=== PATIENT | female | born 1930 | race Caucasian/White ===

== ENCOUNTER 2016-08-06 07:41 | Day surgery (SDC) | payer MEDICARE, BC ==
[~2016-08-06 07:41] MED LIST: ACETAMINOPHEN 500 MG TABLET PO PRN; HYDROmorphone HCL 2 MG/ML VIAL IV PRN; MAG HYDROX/ALUMINUM HYD/SIMETH 30 ML UDC PO PRN; MAGNESIUM HYDROXIDE 30 ML UDC PO PRN; ONDANSETRON HCL/PF 2 MG/ML VIAL IV PRN; PROMETHAZINE HCL 25 MG in DEXTROSE 5 % IN WATER 50 ML IV PRN; RINGERS SOLUTION,LACTATED 1,000 ML IV PRN; ZOLPIDEM TARTRATE 5 MG TABLET PO PRN; ceFAZolin SODIUM 1 GM VIAL IV PRN; diphenhydrAMINE HCL 50 MG/ML VIAL IV PRN; oxyCODONE HCL/ACETAMINOPHEN 1 TAB TABLET PO PRN
--- OUTSIDE RECORDS SUMMARY | 2016-08-06 07:45 | XMS REPORT | Continuity of Care Document ---
:1930 Author Organization [facility] ([facility]) Address [address] [place] [address] Phone [phone] Care Team Providers Name Role Phone John Gonzales Primary Care Provider [phone] Source Comments This disclosure is being made pursuant to the Care Everywhere program, applicable federal and state laws, and may not contain all informaitonavailable regarding this patient.[facility] ([facility]) Active Allergies and Adverse Reactions No Known Allergies Current Medications Prescription Sig. Disp. Refills Start Date End Date Status simvastatin 40 mg tablet Take 40 mg by mouth Active every evening. aspirin 325 mg tablet Take 325 mg by Active mouth daily. diltiazem 30 mg tablet Take 30 mg by mouth Active 2 times daily. 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 Successful deployment of 3.0x18mm Cholo stent.) - 07/29/2000 Hypertension Hyperlipidemia Paroxysmal atrial fibrillation S/P coronary artery stent placement Myocardial infarction, old Social History Tobacco Use Types Packs/Day Years Used Date Never Smoker Smokeless Tobacco: Never Used Alcohol Use Drinks/Week oz/Week Comments No Last Filed Vital Signs Vital Sign Reading Time Taken Blood Pressure 100/62 02/12/2016 10:15 AM CDT Pulse 72 02/12/2016 10:15 AM CDT Temperature 37.3 C (99.1 F) 02/15/2013 1:58 PM CDT Respiratory Rate 16 04/07/2015 2:45 PM ON SITE NURSE Height 1.524 m (5') 02/12/2016 10:15 AM CDT Weight 47.174 kg (104 lb) 02/12/2016 10:15 AM CDT Body Mass Index 20.31 02/12/2016 10:15 AM CDT Oxygen Saturation 96% 04/07/2015 3:40 PM ON SITE NURSE Plan of Care Date Type Specialty Providers Description 02/15/2017 Appointment Heart and Vascular Zoey Echeverria MD Chief Comp: Patient [address] [place] [address] Visit [phone] (Fax) Health Maintenance Due Date Last Done Comments Hepatitis B Vaccine (1 of 3 - Primary Series) 1930 Tdap Vaccine 1940 Lipid Disorder Screening 1947 Td Vaccine 1948 Zoster Vaccine 1989 Pneumococcal Vaccine (1 of 2 - PCV13) 1994 Influenza Vaccine: Seasonal (#1) 12/01/2015 Results from Last 3 Months Not on file
[2016-08-06] MEDS ORDERED: RINGERS SOLUTION,LACTATED 1,000 ML IV ONE ×2 (08:19→11:40)
[2016-08-06 16:07] VITALS: BP 130/70
[2016-08-06] MEDS ORDERED: SENNOSIDES/DOCUSATE SODIUM 1 TAB TABLET PO SCH (21:00)
== END 2016-08-06 07:42 | disposition home or self-care (01) ==
LOC: AMB 07:41
PROVIDERS: ATTEND Orthopaedic Surgery
PROC: 0JNJ0ZZ Release Right Hand Subcutaneous Tissue and Fascia, Open Approach (ICD-10-PCS; principal; 2016-08-06 09:05)
DX: M72.0 Palmar fascial fibromatosis [Dupuytren] (principal); I10 Essential (primary) hypertension; I48.91 Unspecified atrial fibrillation; I25.10 Atherosclerotic heart disease of native coronary artery without angina pectoris; E78.5 Hyperlipidemia, unspecified; Z68.1 Body mass index [BMI] 19.9 or less, adult

== ENCOUNTER 2016-10-12 09:58 | Emergency (ER) | payer MEDICARE, BC ==
--- NOTE | 2016-10-12 10:38 | ERNOTE ---
Medical Problem HPI - Narrative Date of Service: 10/12/16 - General Chief Complaint: General Assessment Time Seen by Provider: 10/12/16 10:14 Source: patient, RN notes reviewed, old records Exam Limitations: no limitations - Immun/Allergies/Home Medications Immunizations: IMMUNIZATION HX Immunizations Up to Date Yes Allergies/Adverse Reactions: Allergies morphine Adverse Reaction (Mild, Verified 10/12/16 10:09) sick to stomach Home Medications: HOME MEDICATIONS Aspirin [Aspirin Enteric Coated] 325 mg PO DAILY 05/21/13 [Last Taken 08/01/16] Diltiazem HCl [Cardizem] 30 mg PO BID 05/21/13 [Last Taken 08/06/16 07:00] Simvastatin 40 mg PO HS 05/22/13 [Last Taken Unknown] Melatonin/Pyridoxine HCl (B6) [Melatonin 10 mg Tablet] 1 each PO HS 10/12/16 [ Last Taken Unknown] Rivaroxaban [Xarelto] 20 mg PO BID #41 tab 10/12/16 [Last Taken Unknown] Vit A/C/E AC/Znox/Cupric Oxide [Eyeprotect Tablet] 2 tab PO DAILY 10/12/16 [ Last Taken Unknown] - History of Present History Narrative: Komal is a 86 year old female brought to the ED from Dr. Gonzales's office. She was being seen for a routine visit this morning for difficulty sleeping when she suddenly reported not feeling right and having difficulty breathing. Her heart rate was 76 on arrival with a SpO2 of 96%, but when she started feeling poorly her heart rate was noted to be 250 and her oxygen saturation had dropped to 88%. She currently reports that she does not feel right and that something is wrong. On arrival, her EKG shows a sinus rhythm in the 90's with frequent PAC's and a right BBB. She is shaking and very anxious. She reports having episodes like this for several days. She reports that the heat is making it difficult for her to breathe. She feels like her symptoms improve when she drinks more water. She does have a history of intermittent atrial fib. She takes aspirin daily but is not anticoagulated. Review of Systems - Review of Systems Constitutional: Present: chills, fatigue, malaise. Absent: recent illness EYE: Present: no symptoms reported ENT: Present: no symptoms reported Respiratory: Present: shortness of breath. Absent: cough, wheezing Cardiology: Absent: chest pain, syncope, edema Gastrointestinal/Abdominal: Absent: nausea, vomiting, diarrhea, abdominal pain Genitourinary: Present: no symptoms reported Musculoskeletal: Absent: muscle pain, neck pain Skin: Absent: rash, lesions Neurological: Present: tremors. Absent: headache, dizziness/light-headedness Endocrine: Present: intolerance to heat, increased thirst. Absent: unexplained weight gain, unexplained weight loss Hematologic/Lymphatic: Present: no symptoms reported Psych: Present: anxiety - Patient's Past Medical History Patient History - Medical: No pertinent hx Patient History - Cardiac/Respiratory: Atrial Fibrillation, Coronary Heart Disease, CHF, Hypertension, Hyperlipidemia, Other - Varicose veins Patient History - Cancer: No Hx of Cancer Patient History - Surgical Procedures: , T & A, Orthopedic Patient History - Other: None LMP (females 10-50): Menopausal - Family History Sister Family History - Medical: Other Family History - Cardiac/Respiratory: No pertinent hx Family History - Cancer: No pertinent family hx - Social History Living Situations: home Abuse History: No History of abuse Psych History: No pertinent hx Smoking Status: Never smoker Alcohol Use: none Drug Use: none - Immunizations Immunizations Up to Date: Yes Hx Pneumococcal Vaccination: More Information Required to Determine History of Influenza Vaccine: More Information Required to Determine Physical Exam - Physical Exam General Appearance: Present: alert, mild distress, anxious, thin Neck: Present: normal inspection, nontender, supple Respiratory: Present: no respiratory distress, normal breath sounds, no accessory muscle use, lungs clear Cardiovascular/Chest: Present: no murmur, normal peripheral pulses, irregularly irregular Peripheral Pulses: N=norm/S=strong/W=weak/B=bound/A=absent: Dorsalis-pedis (R): Strong, Dorsalis-pedis (L): Strong Gastrointestinal/Abdominal: Present: nontender, nondistended, soft Back Exam: Present: normal inspection Extremity Exam: Present: normal inspection, no edema Neurological Exam: Present: alert, oriented, no motor/sensory deficits, other - shaking, very anxious. Absent: normal mood/affect Skin Exam: Present: normal color, warm/dry ED Progress - Results and Orders Patient's Lab Results:: I have reviewed the patient's lab results. - Vital Signs Patient's Vital Signs:: I have reviewed the patient's vital signs. Vital Signs: Vital Signs 10/12/16 10:04 Temperature 37.5 C Pulse Rate 94 Respiratory 18 Rate Blood Pressure 177/87 O2 Sat by Pulse 94 Oximetry - EKG EKG: NSR, RBBB, other - freq PAC's EKG read: Reviewed by me - X-Ray X-Ray #1 X-Ray: chest Interpretation: Reviewed by me X-ray Comments: Chest Single View *: Hyperinflated lungs. No definite consolidation. Increased probably vascular markings and peripheral interstitial lung markings are present. No pneumothorax or pleural fluid collections apparent. Moderate cardiomegaly suggested. Vascular calcifications are seen projecting over the aorta. Trachea is in normal position given patient positioning. Decreased mineralization of bone suggestive of underlying osteopenia or osteoporosis. 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 IMPRESSION: 1. Probably vascular congestion and interstitial edema suggested. 2. Stable cardiomegaly. 3. No focal consolidation. 4. Additional comments as above. Electronically signed by Anju Kennedy M.D.. - CT/Ultrasound CT/Ultrasound Narrative: CTA Chest: IMPRESSION: 1. Positive for small acute versus chronic pulmonary thromboembolism in the right lower lobe posterior basal segment. 2. Interlobular septal thickening at the lung bases, pulmonary vascular congestion suggested. Correlate clinically for pulmonary edema. 3. Trace bilateral pleural effusions. 4. Cardiomegaly with cardiac chamber enlargement, especially the atria. Ordering provider Lexus Badillo was informed regarding the above results via telephone on 2016 12:52 PM. Electronically signed by Anju Kennedy M.D.. - Progress/Reassessment Chief Complaint: General Assessment Progress:: Improved Plan - Plan Plan: CT results showing PE discussed with patient. She is agreeable to starting an anticoagulant. Her heart rate has been in the 70's to 90's with frequent PAC's while in the department. She is feeling better and much more calm. Care also discussed with her PCP , Dr. Gonzales who will see her in the office for follow up. The patient will contact his office to schedule an appointment. Departure - Departure Clinical Impression: Pulmonary embolism on right Disposition: Home Follow Up Needed Condition: Stable Instructions: Pulmonary Embolism Additional Instructions: Call Dr. Gonzales's office to set up a follow up appointment Return to ER if symptoms worsen Referrals: John Gonzales MD [Staff Physician] - Prescriptions: Rivaroxaban [Xarelto] 20 mg PO BID #41 tab
[2016-10-12 10:49] LABS: Hematocrit 43.2 % (37.0-47.0); Hemoglobin 14.2 gm/dL (12.5-16.0); Mean Cell Volume 86.7 fl (78-100); Mean Corpuscular Hemoglobin 28.5 pg (27-31); Mean Corpuscular Hgb Conc 32.9 g/dl (32-36); Mean Platelet Volume 9.7 fl (6.0-9.5); Neutrophil # 3.6 K/mm3 (1.3-6.0); Neutrophil % 66.6 % (42-75.0); Platelet Count 144 K/mm3 (150-450); Red Blood Count 4.98 M/mm3 (4.2-5.4); Red Cell Distribution Width 14.4 % (11.5-14.0); White Blood Count 5.4 K/mm3 (4.0-10.5)
--- OUTSIDE RECORDS SUMMARY | 2016-10-12 10:49 | XMS REPORT | Continuity of Care Document ---
:1930 Author Organization [facility] ([facility]) Address [address] [place] [address] Phone [phone] Care Team Providers Name Role Phone John Gonzales Primary Care Provider [phone] Source Comments This disclosure is being made pursuant to the Care Everywhere program, applicable federal and state laws, and may not contain all informaitonavailable regarding this patient.[facility] ([facility]) Active Allergies and Adverse Reactions No [...] be different from the original. 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 Height 1.524 m (5') 02/12/2016 10:15 AM CDT Weight 47.174 kg (104 lb) 02/12/2016 10:15 AM CDT Body Mass Index 20.31 02/12/2016 10:15 AM CDT Oxygen Saturation 96% 04/07/2015 3:40 PM CREDIT UNDERWRITER Plan of Care Date Type Specialty Providers Description 02/15/2017 Appointment Heart and Vascular Zoey Echeverria MD Chief Comp: Patient [address] [place] [address] Visit [phone] (Fax) Health Maintenance Due Date Last Done Comments Hepatitis B Vaccine (1 of 3 - Primary Series) 1930 Tdap Vaccine 1940 Lipid Disorder Screening 1947 Td Vaccine 1947 Zoster Vaccine 1989 Pneumococcal Vaccine (1 of 2 - PCV13) 1994 Influenza Vaccine: Seasonal (#1) 12/01/2015 Results from Last 3 Months Not on file
[2016-10-12 11:02] LABS: Troponin I 0.02 ng/ml (0.00-0.10)
[2016-10-12 11:04] LABS: Albumin * 3.8 gm/dl (3.4-5.0); Anion Gap 12.7 mmol/L (6.8-13.8); BUN/Creatinine Ratio 26.7 (9.0-21.6); Bilirubin, Total 0.6 mg/dL (0.0-1.1); Ca. Corrected For Albumin 8.9 mg/dL (8.4-10.2); Calcium * 9.1 mg/dL (7.9-10.9); Carbon Dioxide 29.5 mmol/L (24-32.6); Potassium 5.2 mmol/L (3.4-4.6); Total Protein 6.9 gm/dL (6.2-8.2)
[2016-10-12 11:16] LABS: Urine Bilirubin Negative (NEGATIVE); Urine Blood Negative /ul (NEGATIVE); Urine Ketone Negative (NEGATIVE); Urine Nitrite Negative (NEGATIVE); Urine Protein Negative (NEGATIVE); Urine Specific Gravity 1.015 SP.GR. (1.005-1.010); Urine Urobilinogen Normal (NORMAL); Urine pH 6.5 pH (5.0-7.0)
[2016-10-12 11:24] LABS: Urine Appearance Clear; Urine Color Yellow; Urine RBC TRACE /hpf (0-5); Urine WBC None Seen /hpf (0-5)
[2016-10-12 11:25] LABS: Urine Bacteria None Seen; Urine Hyaline Cast TRACE /LPF; Urine Mucus TRACE
[2016-10-12] MEDS ORDERED: RIVAROXABAN 20 MG TABLET PO PRN (13:17)
[2016-10-12 13:22] VITALS: BP 157/73
== END 2016-10-12 13:40 | disposition home or self-care (01) ==
LOC: ER 09:58
DX: I26.99 Other pulmonary embolism without acute cor pulmonale (principal); I48.91 Unspecified atrial fibrillation; Z79.01 Long term (current) use of anticoagulants; I10 Essential (primary) hypertension; E78.5 Hyperlipidemia, unspecified

== ENCOUNTER 2016-12-08 00:52 | Emergency (ER) | payer MEDICARE, BC ==
--- NOTE | 2016-12-08 01:20 | ERNOTE ---
Back Pain ER HPI Presenting Symptoms: injury/pain to back Time Seen by Provider: 12/08/16 01:09 Source: patient Exam Limitations: hard of hearing Immunizations: IMMUNIZATION HX Immunizations Up to Date Yes History of Influenza Vaccine Yes Hx Pneumococcal Vaccination No Allergies/Adverse Reactions: Allergies morphine Adverse Reaction (Mild, Verified 12/08/16 01:20) sick to stomach Home Medications: HOME MEDICATIONS Diltiazem HCl [Cardizem] 30 mg PO BID 05/21/13 [Last Taken 08/06/16 07:00] Simvastatin 40 mg PO HS 05/22/13 [Last Taken Unknown] Melatonin/Pyridoxine HCl (B6) [Melatonin 10 mg Tablet] 1 each PO HS 10/12/16 [ Last Taken Unknown] Alprazolam [Xanax] 0.25 mg PO HS 12/08/16 [Last Taken Unknown] Apixaban [Eliquis] 5 mg PO BID 12/08/16 [Last Taken Unknown] Cholecalciferol (Vitamin D3) [Vitamin D3] 1,000 unit PO DAILY 12/08/16 [Last Taken Unknown] Vit A/C/E AC/Znox/Cupric Oxide [Eye Vitamin-Minerals Tablet] 2 each PO DAILY 01/16 [Last Taken Unknown] traMADol HCL [Ultram] 50 - 100 mg PO QID PRN #10 tab 12/08/16 [Last Taken Unknown] Narrative: Pt got up to go to the bathroom and fell between the wall and her dresser. She landed on her buttocks. She complains of left rib pain and mid to low back pain. Timing: Reports: constant Quality/Severity: Reports: moderate Location of pain: Reports: mid back, lower back Recent Injury?: Reports: yes Possible Precipitating Factor: Reports: fall/near fall Modifying Factors - (Worsens): Reports: cough/deep breaths Review of Systems - Review of Systems Constitutional: Absent: recent illness EYE: Absent: vision changes Respiratory: Absent: shortness of breath Cardiology: Present: no symptoms reported Musculoskeletal: Present: See HPI. Absent: neck pain Skin: Present: other - abrasions left arm Neurological: Absent: dizziness/light-headedness Endocrine: Present: no symptoms reported Hematologic/Lymphatic: Present: easy bruising Psych: Present: no symptoms reported - Patient's Past Medical History Patient History - Medical: No pertinent hx Patient History - Cardiac/Respiratory: Atrial Fibrillation, Coronary Heart Disease, CHF, Hypertension, Hyperlipidemia, Other Patient History - Cancer: No Hx of Cancer Patient History - Surgical Procedures: , T & A, Orthopedic Patient History - Other: None - Family History Sister Family History - Medical: Other Family History - Cardiac/Respiratory: No pertinent hx Family History - Cancer: No pertinent family hx - Social History Living Situations: alone Abuse History: No History of abuse Psych History: No pertinent hx Smoking Status: Never smoker Have you smoked in the past 12 months: No Do you dip or chew tobacco: No Alcohol Use: none Drug Use: none - Immunizations Immunizations Up to Date: Yes Hx Pneumococcal Vaccination: No History of Influenza Vaccine: Yes Physical Exam - Physical Exam General Appearance: Present: wd/wn, alert, mild distress Head Exam: Present: normal inspection, no evidence of injury Neck: Present: normal inspection, nontender, supple Respiratory: Present: no respiratory distress Back Exam: Present: vertebral tenderness - T8-L3 Extremity Exam: Present: normal inspection, non-tender, normal range of motion, pelvis stable Neurological Exam: Present: alert, oriented, normal mood/affect, no motor/ sensory deficits Skin Exam: Present: other - abrasions left elbow ED Progress - Results and Orders Patient's Lab Results:: I have reviewed the patient's lab results. Results and Orders: Laboratory Tests 12/08/16 12/08/16 01:16 01:16 WBC 5.9 Hgb 13.8 Hct 40.9 Plt Count 159 Lymphocytes % 19.5 L Sodium 137 Potassium 4.8 H Chloride 100 Carbon Dioxide 29.7 BUN 12 Creatinine 0.54 Random Glucose 109 Calcium 8.8 Total Bilirubin 0.6 AST 33 ALT 38 Alkaline Phosphatase 71 Total Protein 6.4 Albumin 3.5 - Vital Signs Patient's Vital Signs:: I have reviewed the patient's vital signs. Vital Signs: Vital Signs 12/08/16 01:00 Temperature 36.6 C Pulse Rate 94 Respiratory 12 Rate O2 Sat by Pulse 94 Oximetry - X-Ray X-Ray #1 X-Ray: chest Interpretation: Interp. by me X-ray Comments: no acute changes, no infiltrate or effusion X-Ray #2 X-Ray: ribs Interpretation: Interp. by me X-ray Comments: No fracture appreciated X-Ray #3 X-Ray: lumbosacral Interpretation: Interp. by me X-ray Comments: possible mild anterior T12 compression fracture- probably old - Progress/Reassessment Chief Complaint: Back Pain Progress:: Improved Departure Clinical Impression: Contusion of back Qualifiers: Encounter type: initial encounter Laterality: unspecified laterality Qualified Code(s): S20.229A - Contusion of unspecified back wall of thorax, initial encounter Contusion of rib on left side Qualifiers: Encounter type: initial encounter Qualified Code(s): S20.212A - Contusion of left front wall of thorax, initial encounter - Departure Disposition: Home Follow Up Needed Condition: Good Instructions: Contusion, [id number] Additional Instructions: use pain meds as needed. See your regular doctor if not improving Referrals: John Gonzales MD [Primary Care Provider] - Prescriptions: traMADol HCL [Ultram] 50 - 100 mg PO QID PRN #10 tab PRN Reason: Pain
[2016-12-08 01:37] LABS: Hematocrit 40.9 % (37.0-47.0); Hemoglobin 13.8 gm/dL (12.5-16.0); Mean Cell Volume 86.3 fl (78-100); Mean Corpuscular Hemoglobin 29.1 pg (27-31); Mean Corpuscular Hgb Conc 33.7 g/dl (32-36); Mean Platelet Volume 10.4 fl (6.0-9.5); Neutrophil # 3.8 K/mm3 (1.3-6.0); Neutrophil % 64.6 % (42-75.0); Platelet Count 159 K/mm3 (150-450); Red Blood Count 4.74 M/mm3 (4.2-5.4); Red Cell Distribution Width 14.4 % (11.5-14.0); White Blood Count 5.9 K/mm3 (4.0-10.5)
[2016-12-08 01:53] LABS: Albumin * 3.5 gm/dl (3.4-5.0); Anion Gap 12.1 mmol/L (6.8-13.8); BUN/Creatinine Ratio 22.2 (9.0-21.6); Bilirubin, Total 0.6 mg/dL (0.0-1.1); Ca. Corrected For Albumin 8.9 mg/dL (8.4-10.2); Calcium * 8.8 mg/dL (7.9-10.9); Carbon Dioxide 29.7 mmol/L (24-32.6); Potassium 4.8 mmol/L (3.4-4.6); Total Protein 6.4 gm/dL (6.2-8.2)
[2016-12-08] MEDS ORDERED: NALBUPHINE HCL 20 MG/ML AMPUL IV ONE (02:16)
[2016-12-08] MEDS ORDERED: ONDANSETRON HCL/PF 2 MG/ML VIAL IV ONE (02:16)
[2016-12-08] MEDS ORDERED: NALBUPHINE HCL 20 MG/ML AMPUL ONE (02:17)
[2016-12-08] MEDS ORDERED: ONDANSETRON HCL/PF 2 MG/ML VIAL ONE (02:17)
[2016-12-08] MEDS ORDERED: traMADol HCL 50 MG TABLET PO ONE (03:31)
[2016-12-08] MEDS ORDERED: traMADol HCL 50 MG TABLET ONE (03:36)
[2016-12-08 04:07] VITALS: BP 92/52
== END 2016-12-08 04:07 | disposition home or self-care (01) ==
LOC: ER 00:52
DX: S20.229A Contusion of unspecified back wall of thorax, initial encounter (principal); S20.212A Contusion of left front wall of thorax, initial encounter; I48.91 Unspecified atrial fibrillation; Z79.01 Long term (current) use of anticoagulants; I50.9 Heart failure, unspecified; I10 Essential (primary) hypertension; E78.5 Hyperlipidemia, unspecified; W18.39XA Other fall on same level, initial encounter; Z91.81 History of falling; Y93.89 Activity, other specified; Y92.9 Unspecified place or not applicable
CPT/HCPCS: 36415; 71020; 71100; 72110; 80053; 85025; 96374; 96375; 99284; J2405

== ENCOUNTER 2016-12-13 11:23 | Observation (INO) | payer MEDICARE, BC ==
[2016-12-13] MEDS ORDERED: HYDROcodone/ACETAMINOPHEN 1 EACH TABLET PO ONE (11:48)
[2016-12-13] MEDS ORDERED: HYDROcodone/ACETAMINOPHEN 1 EACH TABLET ONE (11:51)
--- NOTE | 2016-12-13 12:47 | ERNOTE ---
Back Pain ER HPI Presenting Symptoms: injury/pain to back Time Seen by Provider: 12/13/16 11:38 Source: patient, family Exam Limitations: no limitations Immunizations: IMMUNIZATION HX Immunizations Up to Date Yes History of Influenza Vaccine Yes Hx Pneumococcal Vaccination Yes Allergies/Adverse Reactions: Allergies morphine Adverse Reaction (Mild, Verified 12/13/16 11:37) sick to stomach Home Medications: HOME MEDICATIONS Diltiazem HCl [Cardizem] 30 mg PO BID 05/21/13 [Last Taken 08/06/16 07:00] Simvastatin 40 mg PO HS 05/22/13 [Last Taken Unknown] Melatonin/Pyridoxine HCl (B6) [Melatonin 10 mg Tablet] 1 each PO HS 10/12/16 [ Last Taken Unknown] Alprazolam [Xanax] 0.25 mg PO HS 12/08/16 [Last Taken Unknown] Apixaban [Eliquis] 5 mg PO BID 12/08/16 [Last Taken Unknown] Cholecalciferol (Vitamin D3) [Vitamin D3] 1,000 unit PO DAILY 12/08/16 [Last Taken Unknown] Vit A/C/E AC/Znox/Cupric Oxide [Eye Vitamin-Minerals Tablet] 2 each PO DAILY 01/16 [Last Taken Unknown] traMADol HCL [Ultram] 50 - 100 mg PO QID PRN #10 tab 12/08/16 [Last Taken Unknown] Narrative: Patient presents with another fall and worsening upper lumbar lower thoracic pain. Patient states that she's having extraordinary difficulty getting up and moving around and because of the pain in the lumbar thoracolumbar junction she is not able to carry on her normal ADLs. She rates the pain as severe and is now weak and unsteady even with the use of her walker. Timing: Reports: constant, getting worse Quality/Severity: Reports: severe Location of pain: Reports: lower back Activities at Onset: Reports: other - fall Recent Injury?: Reports: yes Possible Precipitating Factor: Reports: fall/near fall Modifying Factors - (Improves): Reports: nothing Modifying Factors - (Worsens): Reports: upright position, movement to right, movement to left, movement flexion Associated Symptoms: Reports: fever/chills Prior Treament: Reports: recently seen Review of Systems - Review of Systems Constitutional: Present: See HPI EYE: Present: no symptoms reported ENT: Present: no symptoms reported Respiratory: Present: no symptoms reported Cardiology: Present: no symptoms reported Gastrointestinal/Abdominal: Present: no symptoms reported Genitourinary: Present: no symptoms reported Musculoskeletal: Present: See HPI, back pain Skin: Present: no symptoms reported Neurological: Present: no symptoms reported Endocrine: Present: no symptoms reported Hematologic/Lymphatic: Present: no symptoms reported Psych: Present: no symptoms reported - Patient's Past Medical History Patient History - Medical: No pertinent hx Patient History - Cardiac/Respiratory: Atrial Fibrillation, Coronary Heart Disease, CHF, Hypertension, Hyperlipidemia, Other Patient History - Cancer: No Hx of Cancer Patient History - Surgical Procedures: , T & A, Orthopedic Patient History - Other: None LMP (females 10-50): post menopausal - Family History Sister Family History - Medical: Other Family History - Cardiac/Respiratory: No pertinent hx Family History - Cancer: No pertinent family hx - Social History Living Situations: home Abuse History: No History of abuse Psych History: No pertinent hx Smoking Status: Never smoker Alcohol Use: none Drug Use: none - Immunizations Immunizations Up to Date: Yes Hx Pneumococcal Vaccination: Yes History of Influenza Vaccine: Yes Physical Exam - Physical Exam General Appearance: Present: wd/wn, alert, severe distress Head Exam: Present: normal inspection, no evidence of injury Eye Exam: Normal inspection: bilateral, PERRL: bilateral Ears, Nose, Throat: Present: normal ENT inspection, H, normal pharynx Neck: Present: normal inspection, nontender Respiratory: Present: no respiratory distress, normal breath sounds, no accessory muscle use, chest nontender, lungs clear Cardiovascular/Chest: Present: regular rate, rhythm, no murmur, normal peripheral pulses Gastrointestinal/Abdominal: Present: normal bowel sounds, nontender, nondistended, soft, no organomegaly Rectal Exam: Present: deferred Back Exam: Present: no vertebral tenderness, decreased range of motion, muscle spasm Extremity Exam: Present: normal inspection, non-tender, no edema, normal range of motion Neurological Exam: Present: alert, oriented, normal mood/affect Skin Exam: Present: normal color, warm/dry Lymphatic Exam: Present: no adenopathy ED Progress - Results and Orders Patient's Lab Results:: I have reviewed the patient's lab results. - Vital Signs Patient's Vital Signs:: I have reviewed the patient's vital signs. Vital Signs: Vital Signs 12/13/16 11:25 Temperature 37.0 C Pulse Rate 88 Respiratory 15 Rate Blood Pressure 155/110 - X-Ray X-Ray #1 X-Ray: lumbosacral Interpretation: Reviewed by me - Progress/Reassessment Chief Complaint: Back Pain Progress:: Unchanged Plan - Plan Plan: Patient has no relief from oral pain management to be attempted. Patient has fallen several times now and has a worsening compression fracture T12 and is unstable on her feet and will likely not be able to go home at this point. Patient will be admitted for pain management, PT/OT eval and then consideration for other home physical therapy or possible a brief period of time in the [facility] for continuing PT/OT. Departure Clinical Impression: Compression fracture of body of thoracic vertebra, Intractable back pain, Falls frequently - Departure Disposition: [facility] Condition: Fair Referrals: John Gonzales MD [Primary Care Provider] -
[2016-12-13 13:44] LABS: Urine Bilirubin Negative (NEGATIVE); Urine Blood 25 /ul (NEGATIVE); Urine Ketone 15 mg/dL (NEGATIVE); Urine Nitrite Negative (NEGATIVE); Urine Protein 100 mg/dL (NEGATIVE); Urine Specific Gravity 1.025 SP.GR. (1.005-1.010); Urine Urobilinogen Normal (NORMAL)
[2016-12-13 13:52] LABS: Urine Appearance Clear; Urine Color Yellow; Urine WBC TRACE /hpf (0-5)
[2016-12-13 13:53] LABS: Urine Bacteria 1+; Urine RBC None Seen /hpf (0-5)
[2016-12-13] MEDS: HYDROmorphone HCL 1 MG/ML DISP.SYRIN IV PRN ×2 (14:25→17:09)
[2016-12-13 14:29] LABS: Hematocrit 43.9 % (37.0-47.0); Hemoglobin 14.9 gm/dL (12.5-16.0); Mean Cell Volume 84.4 fl (78-100); Mean Corpuscular Hemoglobin 28.7 pg (27-31); Mean Corpuscular Hgb Conc 33.9 g/dl (32-36); Mean Platelet Volume 10.2 fl (6.0-9.5); Neutrophil # 8.3 K/mm3 (1.3-6.0); Neutrophil % 84.8 % (42-75.0); Platelet Count 123 K/mm3 (150-450); Red Cell Distribution Width 14.1 % (11.5-14.0); White Blood Count 9.8 K/mm3 (4.0-10.5)
[2016-12-13 14:43] LABS: Albumin * 3.5 gm/dl (3.4-5.0); Anion Gap 13.7 mmol/L (6.8-13.8); BUN/Creatinine Ratio 20.8 (9.0-21.6); Bilirubin, Total 0.8 mg/dL (0.0-1.1); Ca. Corrected For Albumin 9.1 mg/dL (8.4-10.2); Carbon Dioxide 28.3 mmol/L (24-32.6); Total Protein 6.7 gm/dL (6.2-8.2)
--- NOTE | 2016-12-13 17:14 | HP ---
Chief Complaint - Chief Complaint Date of Service: 12/13/16 Time of Service: 17:00 Chief Complaint: intractable LBP History of Present Illness: Komal Puckett is an 86-year-old white female, patient of Dr. Gonzales, with previous medical disc history of atrial fibrillation, carotid artery stenosis, hypertension, congestive heart failure, pulmonary embolism, who was admitted on 12/13/2016 because of intractable low back pain. 5 days prior to admission the patient lost her balance and fell down hitting her drawer and the wall. She was seen in the emergency room and had an x-ray of her lumbar spine. This was read as a compression deformity of her T12 vertebra age indeterminate. One day PTS, the patient again fell down. She was going to the bathroom and she lost her balance, falling down on her buttocks. She had severe pain despite taking tramadol and so she was brought to the emergency room. Follow-up lumbar x-ray showed showed 50% compression fracture of her T12 vertebra. She was then admitted for pain control and physical therapy referral. She denied any CP, palpitations, blanketing of vision, diaphoresis before falling down. - Patient's Past Medical History Patient History - Medical: No pertinent hx Patient History - Cardiac/Respiratory: Atrial Fibrillation, Coronary Heart Disease, CHF, Hypertension, Hyperlipidemia, Other Patient History - Cancer: No Hx of Cancer Patient History - Surgical Procedures: , T & A, Orthopedic Patient History - Other: None LMP (females 10-50): Menopausal - Family History Sister Family History - Medical: Other Family History - Cardiac/Respiratory: No pertinent hx Family History - Cancer: No pertinent family hx Mother Family History - Medical: Father Family History - Medical: Family History - Cardiac/Respiratory: Cardiac Arrest, Coronary Heart Disease - Social History Living Situations: alone Abuse History: No History of abuse Psych History: No pertinent hx Smoking Status: Never smoker Have you smoked in the past 12 months: No Do you dip or chew tobacco: No Alcohol Use: none Drug Use: none - Immunizations Immunizations Up to Date: Yes Hx Pneumococcal Vaccination: Yes History of Influenza Vaccine: Yes Review Of Systems (GEN) - Review of Systems Generalized/Overall Review: Present: Weakness. Absent: Fever EENTM: Present: No Symptoms Reported Respiratory: Absent: Cough, Shortness of Breath Cardiac: Absent: Chest Pain, Edema, Palpitations Abdominal: Absent: Nausea, Vomiting Genitourinary: Absent: Urgency, Frequency Musculoskeletal: Present: Joint Pain, Back Pain Allergies/Adverse Reactions: Allergies Allergy/AdvReac Type Severity Reaction Status Date / Time morphine AdvReac Mild sick to Verified 12/13/16 14:11 stomach Home Medications: HOME MEDICATIONS Diltiazem HCl [Cardizem] 30 mg PO BID 05/21/13 [Last Taken 08/06/16 07:00] Simvastatin 40 mg PO HS 05/22/13 [Last Taken Unknown] Melatonin/Pyridoxine HCl (B6) [Melatonin 10 mg Tablet] 1 each PO HS 10/12/16 [ Last Taken Unknown] Alprazolam [Xanax] 0.25 mg PO HS 12/08/16 [Last Taken Unknown] Apixaban [Eliquis] 5 mg PO BID 12/08/16 [Last Taken Unknown] Cholecalciferol (Vitamin D3) [Vitamin D3] 1,000 unit PO DAILY 12/08/16 [Last Taken Unknown] traMADol HCL [Ultram] 50 - 100 mg PO QID PRN #10 tab 12/08/16 [Last Taken Unknown] Aspirin 81 mg PO DAILY 12/13/16 [Last Taken Unknown] [place]-3 Fatty Acids/Fish Oil [Fish Oil 1,000 mg Capsule] 1 each PO DAILY [Last Taken Unknown] Exam - Exam Vital Signs: Vital Signs - Last Taken Temp 37.1 C 12/13/16 14:50 Pulse 70 12/13/16 14:50 Resp 20 12/13/16 14:50 BP 142/77 12/13/16 14:50 Pulse Ox 96 12/13/16 14:50 Constitutional: Present: Alert, Oriented x3, Cooperative, Elderly, Thin and frail ENT Exam: Present: hearing grossly normal Eye Exam: bilateral eye: normal inspection, PERRL, EOMI Neck: Present: supple Back Exam: Present: vertebral tenderness Breasts: Present: Exam deferred Respiratory: Present: decreased breath sounds, No rales, No wheezing Cardiovascular/Chest: Present: no JVD, no murmur, irregularly irregular Abdomen: Present: Normal bowel sounds, soft, nontender, nondistended Extremity: Present: no calf tenderness, pedal edema Diagnostic Studies: Abnormal Lab Results 12/13/16 12/13/16 Range/Units 14:20 14:20 RDW 14.1 H (11.5-14.0) % Plt Count 123 L (150-450) K/mm3 MPV 10.2 H (6.0-9.5) fl Immature Gran % (Auto) 0.90 H (0.001-0.429) % Immature Gran # (Auto) 0.09 H (0.000-0.0310) K/mm3 Neutrophils % 84.8 H (42-75.0) % Lymphocytes % 5.4 L (20-51) % Neutrophils # 8.3 H (1.3-6.0) K/mm3 Lymphocytes # 0.5 L (1.5-3.5) k/mm3 Potassium 5.0 H (3.4-4.6) mmol/L Chloride 95 L (97-106) mmol/L Random Glucose 121 H (70-110) mg/dL Laboratory Results WBC 9.8 K/mm3 (4.0-10.5) 12/13/16 14:20 RBC 5.20 M/mm3 (4.2-5.4) 12/13/16 14:20 Hgb 14.9 gm/dL (12.5-16.0) 12/13/16 14:20 Hct 43.9 % (37.0-47.0) 12/13/16 14:20 MCV 84.4 fl (78-100) 12/13/16 14:20 MCH 28.7 pg (27-31) 12/13/16 14:20 MCHC 33.9 g/dl (32-36) 12/13/16 14:20 RDW 14.1 % (11.5-14.0) H 12/13/16 14:20 Plt Count 123 K/mm3 (150-450) L 12/13/16 14:20 MPV 10.2 fl (6.0-9.5) H 12/13/16 14:20 Immature Gran % (Auto) 0.90 % (0.001-0.429) H 12/13/16 14:20 Immature Gran # (Auto) 0.09 K/mm3 (0.000-0.0310) H 12/13/16 14:20 Neutrophils % 84.8 % (42-75.0) H 12/13/16 14:20 Lymphocytes % 5.4 % (20-51) L 12/13/16 14:20 Monocytes % 8.5 % (0.0-9) 12/13/16 14:20 Eosinophils % 0.2 % (0.0-3.0) 12/13/16 14:20 Basophils % 0.2 % (0.0-1.0) 12/13/16 14:20 Nucleated RBC % 0.0 k/mm3 (0-1) 12/13/16 14:20 Neutrophils # 8.3 K/mm3 (1.3-6.0) H 12/13/16 14:20 Lymphocytes # 0.5 k/mm3 (1.5-3.5) L 12/13/16 14:20 Monocytes # 0.8 k/mm3 (0.0-1.0) 12/13/16 14:20 Eosinophils # 0.0 k/mm3 (0.0-0.7) 12/13/16 14:20 Absolute Basophils 0.0 k/mm3 (0.0-0.1) 12/13/16 14:20 Sodium 132 mmol/L (132-142) 12/13/16 14:20 Plasma Sodium 132 mmol/L (130-142) 12/13/16 14:20 Potassium 5.0 mmol/L (3.4-4.6) H 12/13/16 14:20 Chloride 95 mmol/L (97-106) L 12/13/16 14:20 Carbon Dioxide 28.3 mmol/L (24-32.6) 12/13/16 14:20 Anion Gap 13.7 mmol/L (6.8-13.8) 12/13/16 14:20 BUN 11 mg/dL (3-23) 12/13/16 14:20 Creatinine 0.53 mg/dL (0.4-1.4) 12/13/16 14:20 Est GFR (Non-Af Amer) 116 mL/min (60-130) 12/13/16 14:20 BUN/Creatinine Ratio 20.8 (9.0-21.6) 12/13/16 14:20 Random Glucose 121 mg/dL (70-110) H 12/13/16 14:20 Calcium 9.0 mg/dL (7.9-10.9) 12/13/16 14:20 Calcium Adj for Albumin 9.1 mg/dL (8.4-10.2) 12/13/16 14:20 Total Bilirubin 0.8 mg/dL (0.0-1.1) 12/13/16 14:20 AST 24 U/L (0-48) 12/13/16 14:20 ALT 26 U/L (19-67) 12/13/16 14:20 Alkaline Phosphatase 81 U/L (50-170) 12/13/16 14:20 Total Protein 6.7 gm/dL (6.2-8.2) 12/13/16 14:20 Albumin 3.5 gm/dl (3.4-5.0) 12/13/16 14:20 Urine Color Yellow 12/13/16 11:52 Urine Appearance Clear 12/13/16 11:52 Urine pH 6.0 pH (5.0-7.0) 12/13/16 11:52 Ur Specific [place] 1.025 SP.GR. (1.005-1.010) 12/13/16 11:52 Urine Protein 100 mg/dL (NEGATIVE) H 12/13/16 11:52 Urine Glucose (UA) Negative mg/dL (NEGATIVE) 12/13/16 11:52 Urine Ketones 15 mg/dL (NEGATIVE) 12/13/16 11:52 Urine Blood 25 /ul (NEGATIVE) H 12/13/16 11:52 Urine Nitrate Negative (NEGATIVE) 12/13/16 11:52 Urine Bilirubin Negative mg/dl (NEGATIVE) 12/13/16 11:52 Prot Sulfosalicylic Acd 2+ mg/dL (0) H 12/13/16 11:52 Urine Urobilinogen Normal EU/dl (NORMAL) 12/13/16 11:52 Ur Leukocyte Esterase Negative /ul (NEGATIVE) 12/13/16 11:52 Urine RBC None seen /hpf (0-5) 12/13/16 11:52 Urine WBC Trace /hpf (0-5) H 12/13/16 11:52 Ur Epithelial Cells 0-5 /hpf (0-5) 12/13/16 11:52 Urine Bacteria 1+ (NONE) H 12/13/16 11:52 Urine Culture Comments No culture indicated 12/13/16 11:52 Assessment/Plan - Assessment/Plan (1) Compression fracture of body of thoracic vertebra Assessment: with intractable pain. will do IV Dilaudid and PO percoset. will refer her to PT. Probable NH placement if with no improvement. consider kyphoplasty if with no improvement. Problem: Acute (2) Falls frequently Problem: Acute (3) Contusion of back Problem: Acute (4) Contusion of rib on left side Problem: Acute (5) Afib Problem: Chronic Qualifiers: Atrial fibrillation type: chronic Qualified Code(s): I48.2 - Chronic atrial fibrillation (6) Hypertension Problem: Chronic Qualifiers: Hypertension type: essential hypertension Qualified Code(s): I10 - Essential (primary) hypertension (7) Pulmonary embolism Problem: Chronic
[2016-12-13] MEDS ORDERED: SENNOSIDES/DOCUSATE SODIUM 1 TAB TABLET PO SCH (21:00)
[2016-12-13] MEDS ORDERED: MELATONIN 3,000 MCG TABLET PO SCH (21:00)
[2016-12-13] MEDS ORDERED: MIRTAZAPINE 15 MG TABLET PO SCH (21:00)
[2016-12-13] MEDS ORDERED: ALPRAZolam 0.25 MG TABLET PO SCH (21:00)
[2016-12-13] MEDS: DILTIAZEM HCL 30 MG TABLET PO SCH (21:36)
[2016-12-13] MEDS: APIXABAN 2.5 MG TABLET PO SCH (21:36)
[2016-12-13] MEDS: oxyCODONE HCL/ACETAMINOPHEN 1 TAB TABLET PO PRN (23:50)
[2016-12-14] MEDS: oxyCODONE HCL/ACETAMINOPHEN 1 TAB TABLET PO PRN ×2 (05:31→12:32)
[2016-12-14] MEDS: HYDROmorphone HCL 1 MG/ML DISP.SYRIN IV PRN (05:36)
--- NOTE | 2016-12-14 08:14 | PN ---
[facility] Note - Interim Narrative: 12/14/16 08:11 The patient says her back hurts so bad. Will add Fentanyl patch to her pain medication and continue with Dilaudid or Percoset for breakthrough pain. Awaiting PT evaluation and treatment. May need NH for more PT or HH with home PT as she has been falling down at home a couple of times now.. 12/14/16 09:42
[2016-12-14] MEDS ORDERED: fentaNYL 12 MCG PATCH.TD72 TD SCH (08:30)
[2016-12-14] MEDS ORDERED: CHOLECALCIFEROL 1,000 UNIT CAPSULE PO SCH (09:00)
[2016-12-14] MEDS: APIXABAN 2.5 MG TABLET PO SCH (09:13)
[2016-12-14] MEDS: DILTIAZEM HCL 30 MG TABLET PO SCH (09:13)
--- NOTE | 2016-12-14 10:29 | DS ---
(1) Compression fracture of body of thoracic vertebra Problem: Acute (2) Falls frequently Problem: Acute (3) Contusion of back Problem: Acute (4) Contusion of rib on left side Problem: Acute (5) Afib Problem: Chronic Qualifiers: Atrial fibrillation type: chronic Qualified Code(s): I48.2 - Chronic atrial fibrillation (6) Hypertension Problem: Chronic Qualifiers: Hypertension type: essential hypertension Qualified Code(s): I10 - Essential (primary) hypertension (7) Pulmonary embolism Problem: Chronic Description of Stay: Komal Puckett is an 86-year-old white female, patient of Dr. Gonzales, with previous medical disc history of atrial fibrillation, carotid artery stenosis, hypertension, congestive heart failure, pulmonary embolism, who was admitted on 12/13/2016 because of intractable low back pain. 5 days prior to admission the patient lost her balance and fell down hitting her drawer and the wall. She was seen in the emergency room and had an x-ray of her lumbar spine. This was read as a compression deformity of her T12 vertebra age indeterminate. 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 She was going to the bathroom and she lost her balance again , falling down on her buttocks. She had severe pain despite taking tramadol and so she was brought to the emergency room. Follow-up lumbar x-ray showed showed 50% compression fracture of her T12 vertebra. She was then admitted for pain control and physical therapy referral. She denied any CP, palpitations, blanketing of vision, diaphoresis before falling down. Her pain is not much controlled and so we will send her to the [place] for more PT and will start her on Fentanyl patch with Percoset RPN fpr breakthrough pian. She was also started on Remeron for depression and decreased appetite. If her LBP is not improved she might need kyphoplasty but I will leave that up with her PCP. Procedures Performed: none Discharge Disposition: [facility] Disposition: [facility] Condition: Fair Discharge Activity: Activity as tolerated Discharge Diet: Low salt Custodial Therapy: Physicial Therapy Referrals: John Gonzales MD [Primary Care Provider] - Additional Patient Instructions (free text): Follow up with PCP in 2 weeks. Prescriptions (Any new or edited meds): Mirtazapine [Remeron] 15 mg PO HS #30 tablet Sennosides/Docusate Sodium [Senokot-S] 2 tab PO HS #60 tablet fentaNYL [Duragesic] 12 mcg TD Q72H #2 patch.td72 oxyCODONE HCL/ACETAMINOPHEN [Percocet 5 MG/325 MG] 1 tab PO Q6H PRN #30 tablet PRN Reason: Pain Complete Home Medications List: Complete Home Medication List: Diltiazem HCl [Cardizem] 30 mg PO BID 05/21/13 Simvastatin 40 mg PO HS 05/22/13 Melatonin/Pyridoxine HCl (B6) [Melatonin 10 mg Tablet] 1 each PO HS 10/12/16 Alprazolam [Xanax] 0.25 mg PO HS 12/08/16 Apixaban [Eliquis] 5 mg PO BID 12/08/16 Cholecalciferol (Vitamin D3) [Vitamin D3] 1,000 unit PO DAILY 12/08/16 Mirtazapine [Remeron] 15 mg PO HS #30 tablet 12/14/16 Sennosides/Docusate Sodium [Senokot-S] 2 tab PO HS #60 tablet 12/14/16 fentaNYL [Duragesic] 12 mcg TD Q72H #2 patch.td72 12/14/16 oxyCODONE HCL/ACETAMINOPHEN [Percocet 5 MG/325 MG] 1 tab PO Q6H PRN #30 tablet 12/14/16
[2016-12-14 10:33] VITALS: BP 126/64
== END 2016-12-14 13:31 ==
LOC: ER 11:23 → MS 12:48
PROVIDERS: ADMIT Internal Medicine; ATTEND Family Medicine
DX: S22.089A Unspecified fracture of T11-T12 vertebra, initial encounter for closed fracture (principal); W01.0XXA Fall on same level from slipping, tripping and stumbling without subsequent striking against object, initial encounter; Z91.81 History of falling; Y92.009 Unspecified place in unspecified non-institutional (private) residence as the place of occurrence of the external cause; S30.0XXA Contusion of lower back and pelvis, initial encounter; S20.212A Contusion of left front wall of thorax, initial encounter; I48.91 Unspecified atrial fibrillation; Z79.01 Long term (current) use of anticoagulants; I10 Essential (primary) hypertension; I27.82 Chronic pulmonary embolism
CPT/HCPCS: 36415; 72110; 80053; 81001; 85025; 93005; 96374; 96376; 97110; 97116; 97162; 97530; 99285; G0378; G8978; G8979; G8980

== ENCOUNTER 2017-01-25 04:38 | Emergency (ER) | payer MEDICARE, BC ==
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
[2017-01-25 06:43] VITALS: BP 119/69
== END 2017-01-25 06:43 | disposition home or self-care (01) ==
LOC: ER 04:38
DX: S30.0XXA Contusion of lower back and pelvis, initial encounter (principal); W01.0XXA Fall on same level from slipping, tripping and stumbling without subsequent striking against object, initial encounter; Y92.002 Bathroom of unspecified non-institutional (private) residence as the place of occurrence of the external cause

== ENCOUNTER 2017-01-31 08:13 | Emergency (ER) | payer MEDICARE, BC ==
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
[2017-01-31 09:51] VITALS: BP 125/69
== END 2017-01-31 09:54 | disposition home or self-care (01) ==
LOC: ER 08:13
PROC: 0JQH0ZZ Repair Left Lower Arm Subcutaneous Tissue and Fascia, Open Approach (ICD-10-PCS; principal; 2017-01-31)
DX: S41.112A Laceration without foreign body of left upper arm, initial encounter (principal); Z87.440 Personal history of urinary (tract) infections; W01.198A Fall on same level from slipping, tripping and stumbling with subsequent striking against other object, initial encounter

== ENCOUNTER 2018-11-08 11:09 | Inpatient (IN) ==
[2018-11-08] MEDS ORDERED: ACETAMINOPHEN 1,000 MG/100 ML BTL IV ONE (11:42)
--- NOTE | 2018-11-08 11:46 | ERNOTE ---
Lower Extremity HPI - General Lower Extremities Pain: hip: right Time Seen by Provider: 11/08/18 11:09 Source: patient, family Exam Limitations: no limitations - Immun/Allergies/Home Medications Immunizations: IMMUNIZATION HX Immunizations Up to Date Yes History of Influenza Vaccine Yes Hx Pneumococcal Vaccination Yes Allergies/Adverse Reactions: Allergies Allergy/AdvReac Type Severity Reaction Status Date / Time morphine AdvReac Mild sick to Verified 11/08/18 11:15 stomach Home Medications: HOME MEDICATIONS Magnesium Hydroxide [Milk of Magnesia] 30 ml PO DAILY PRN 10/04/17 [Last Taken Unknown] Beta-Carotene(A) W-C , E/Min [Ocuvite] 1 tab PO DAILY 10/06/17 [Last Taken 11/08/18] Menthol [Biofreeze] 1 appl TP Q6H PRN 10/06/17 [Last Taken Unknown] Sennosides [Senna Lax] 2 tab PO HS PRN 10/06/17 [Last Taken Unknown] carboxymethylcellulose sodium 0.5 % eye drops 1 drp OP BID #15 ml 02/16/18 [Last Taken Unknown] diltiazem 30 mg tablet 30 mg PO DAILY #30 tab 05/17/18 [Last Taken 11/08/18] melatonin 3 mg tablet 3 mg PO HS #30 tab 05/17/18 [Last Taken 11/07/18] meloxicam 15 mg tablet 15 mg PO DAILY #30 tab 05/17/18 [Last Taken 11/08/18] mirtazapine 15 mg tablet 15 mg PO DAILY #30 tab 05/17/18 [Last Taken 11/07/18] cholecalciferol (vitamin D3) 1,000 unit capsule 1,000 unit PO DAILY #30 cap 05/24/18 [Last Taken Unknown] alprazolam 0.5 mg tablet 0.25 mg PO BID PRN #30 tab 09/22/18 [Last Taken Unknow n] clotrimazole 1 % topical cream See Rx Instructions TP BID #45 g 09/26/18 [Last Taken 11/08/18] betamethasone dipropionate 0.05 % topical cream See Rx Instructions .ROUTE .COMPLEX #45 gram 10/10/18 [Last Taken Unknown] vitamins A and D-white petrolatum-lanolin topical ointment See Rx Instructions .ROUTE .COMPLEX #113 gram 10/10/18 [Last Taken Unknown] alprazolam 0.25 mg tablet 0.25 mg PO HS #30 tab 10/30/18 [Last Taken 11/07/18] Aspirin [Lo-Dose Aspirin EC] 81 mg PO DAILY 11/04/18 [Last Taken 11/08/18] tramadol 50 mg tablet 50 mg PO Q6H PRN #60 tab 11/07/18 [Last Taken Unknown] Acetaminophen [Tylenol] 650 mg PO Q4H PRN 11/08/18 [Last Taken Unknown] Bisacodyl [Dulcolax Suppository] 10 mg RC DAILY PRN 11/08/18 [Last Taken Unknown] Polyethylene Glycol 3350 [Miralax] 17 gm PO DAILY 11/08/18 [Last Taken 11/08/18] - History of Present Illness Narrative: Patient fell on her right side four days ago, was seen in the ER, had hip Xray (and additional imaging) which showed no fracture. She was able to ambulate and was send back to the [facility]. Her family states that she has not been able to put any weight on her right leg at all and has not walked. She followed up with Dr Gonzales today, repeat imaging was ordered which showed a right hip fracture. she was brought to the ER. She denies any new injury or any other symptoms besides the pain in her right leg Method of Injury: Reports: fell Reason for Fall: Reports: lost balance Loss of Consciousness: Reports: no loss of consciousness Modifying Factors - (Improves): Reports: rest Modifying Factors - (Worsens): Reports: movement Associated Symptoms: Reports: unable to bear weight Other Injuries: Reports: none Subsequent Symptoms: Denies: sensory loss, numbness Prior Treament: Reports: recently seen Review of Systems - Review of Systems Constitutional: Absent: recent illness EYE: Present: no symptoms reported Respiratory: Absent: shortness of breath Cardiology: Absent: chest pain Gastrointestinal/Abdominal: Absent: nausea, abdominal pain Musculoskeletal: Present: joint pain. Absent: back pain Neurological: Absent: weakness, numbness Medical History (Updated 11/08/18 @ 12:37 by Mirella Frias MD) Afib CHF (congestive heart failure) Coronary heart disease HTN (hypertension) Hyperlipemia Surgical History: Surgical History (Updated 11/04/18 @ 13:17 by Delilah Victoria RN) History of repair of left hip joint Family History: Family History (Updated 11/08/18 @ 11:16 by Jennifer Ley RN) Other No pertinent family history Social History: Preferred Language Portuguese Smoking Status Never smoker Abuse History No History of abuse Psych History Hx of Anxiety Alcohol Use none Drug Use none No Social History Section defined Physical Exam - Physical Exam General Appearance: Present: wd/wn, alert, mild distress, anxious Head Exam: Present: normal inspection, no evidence of injury Respiratory: Present: no respiratory distress, normal breath sounds, no accessory muscle use, lungs clear Cardiovascular/Chest: Present: regular rate, rhythm, no murmur Peripheral Pulses: N=norm/S=strong/W=weak/B=bound/A=absent: Dorsalis-pedis (R): Normal Gastrointestinal/Abdominal: Present: nontender, nondistended Extremity Exam: Present: other - right hip tender to touch, pain on attempted ROM exam, otherwise normal exam Neurological Exam: Present: alert, oriented, normal mood/affect, no motor/sensory deficits Skin Exam: Present: normal color, warm/dry Progress - Results and Orders Patient's Lab Results:: I have reviewed the patient's lab results. - Vital Signs Patient's Vital Signs:: I have reviewed the patient's vital signs. Vital Signs: Vital Signs 11/08/18 11:11 11/08/18 11:23 Temperature 36.6 C Pulse Rate 104 H 92 Respiratory Rate 15 Blood Pressure 148/80 - EKG EKG #1 EKG: NSR - sinustachycardia 101, RBBB, unchanged from - 2017 EKG read: Interp. by me - X-Ray X-Ray #1 X-Ray: chest - chronic changes, no acute infiltrate Interpretation: Discd w/ radiologist - Progress/Reassessment Progress Note-Subjective: 11/08/18 11:[address] Lucas, he is leaving town in the morning and Dr Oviedo is not available until weekend, recommends transfer 11/08/18 11:46 discussed with Marilia Cisneros, Dr Oviedo is available in two days, will work on pre op clearance and do surgery then, this was discussed with Dr Lucas 11/08/18 11:47 updated family on plan to admit and two do surgery in two days 11/08/18 11:[address] Gonzales,okay to admit for hip fracture,will update on preop labs and imaging, is aware of low O2 11/08/18 12:[address] Gonzales on test results, no definite pneumonia, consider CHF as BNP elevated, okay to give lasix 20 mg IV okay to start rocephin for UTI Departure Clinical Impression: Hypoxemia Closed right hip fracture Qualifiers: Encounter type: initial encounter Qualified Code(s): S72.001A - Fracture of unspecified part of neck of right femur, initial encounter for closed fracture UTI (urinary tract infection) Qualifiers: Urinary tract infection type: acute cystitis Hematuria presence: without hematuria Qualified Code(s): N30.00 - Acute cystitis without hematuria CHF exacerbation Qualifiers: Heart failure type: unspecified Qualified Code(s): I50.9 - Heart failure, unspecified - Departure Disposition: Still a patient Condition: Fair
[2018-11-08 11:50] LABS: Hematocrit 37.4 % (37.0-47.0); Hemoglobin 12.6 gm/dL (12.5-16.0); Mean Cell Volume 87.2 fl (78-100); Mean Corpuscular Hemoglobin 29.4 pg (27-31); Mean Corpuscular Hgb Conc 33.7 g/dl (32-36); Mean Platelet Volume 9.9 fl (8-12.5); Platelet Count 157 K/mm3 (150-450); Red Blood Count 4.29 M/mm3 (4.2-5.4); Red Cell Distribution Width 13.4 % (11.5-14.0); White Blood Count 12.9 K/mm3 (4.0-10.5)
[2018-11-08 11:52] LABS: Total Cells Counted 100
[2018-11-08 11:55] LABS: Urine Bilirubin Negative (NEGATIVE); Urine Blood Negative /ul (NEGATIVE); Urine Ketone Negative (NEGATIVE); Urine Protein Negative (NEGATIVE); Urine Specific Gravity 1.015 SP.GR. (1.005-1.010); Urine Urobilinogen Normal (NORMAL)
[2018-11-08 12:02] LABS: Urine Color Yellow; Urine Nitrite Positive (NEGATIVE)
[2018-11-08 12:03] LABS: Urine Appearance Slightly Cloudy (CLEAR); Urine Bacteria 3+; Urine RBC None Seen /hpf (0-5); Urine WBC TRACE /hpf (0-5)
[2018-11-08 12:04] LABS: Anion Gap 15.2 mmol/L (6.8-13.8); BUN/Creatinine Ratio 31.9 (9.0-21.6); Ca. Corrected For Albumin 9.4 mg/dL (8.4-10.2); Calcium * 8.9 mg/dL (7.9-10.9); Carbon Dioxide 24.7 mmol/L (24-32.6); Potassium 4.9 mmol/L (3.4-4.6); Total Protein 6.4 gm/dL (6.2-8.2)
[2018-11-08 12:06] LABS: Lymphocyte 10 % (20-51); Monocyte 6 % (0-9); Neutrophil 84 % (42-75); Neutrophil # 10.8 K/mm3 (1.3-6.0); Platelet Estimate Normal (NORMAL); RBC Morphology Normal (NORMAL)
[2018-11-08] MEDS ORDERED: ONDANSETRON HCL/PF 2 MG/ML VIAL IV PRN (12:25)
[2018-11-08] MEDS ORDERED: ACETAMINOPHEN 1,000 MG/100 ML BTL IV PRN (12:27)
[2018-11-08] MEDS ORDERED: FUROSEMIDE 10 MG/ML VIAL IV ONE (12:30)
[2018-11-08] MEDS ORDERED: DEXTROSE 5 % IN WATER 100 ML BAG IV ONE (12:33)
[2018-11-08] MEDS: ENOXAPARIN SODIUM 40 MG/0.4 ML SYRG SC SCH (14:17)
[2018-11-08] MEDS ORDERED: MAGNESIUM HYDROXIDE 30 ML UDC PO PRN (14:31)
[2018-11-08] MEDS ORDERED: ALPRAZolam 0.25 MG TABLET PO PRN (14:31)
--- NOTE | 2018-11-08 17:10 | HP ---
Chief Complaint - Chief Complaint Date of Service: 11/08/18 Time of Service: 17:04 Chief Complaint: R hip pain after injury History of Present Illness: Patient is an 88-year-old white female who resides at the [facility], who is typically mobile and very active, was trying to hold an elevator for a friend in the [facility] when she was knocked over by the doors. Injury occurred on November 04 for which she was transported to the emergency room and evaluated. X-rays of her right hip revealed no fracture. She was ambulating in the ER with some pain but little difficulty and was therefore sent back to the [facility]. On Tuesday it was reported she was complaining of significant right hip pain and refusing to ambulate. Tylenol and ice to the hip was given as treatment but still she complained of hip pain and wanting to ambulate. There was no reported shortening of her right leg or deformity of the right leg. Prescription for tramadol was called in, but patient continued in pain and therefore was sent to the hospital for follow-up x-ray of her right hip. Repeat x-ray did show a fracture of her right femoral neck. She was admitted for pain control with eventual plan of surgery for her right hip. Upon admission she was noted to be hypoxic down into the 80s. She has a slight cough but no other respiratory findings. Chest x-ray was negative for pneumonia but did show old pulmonary fibrosis findings. She typically does not wear oxygen, but has been immobile for a couple days. UA also revealed potential bladder infection. Her sodium was also reduced to 128 (with correction). She also had a white count of over 12,000. Her BN P was also elevated and her EKG showed sinus tachycardia with frequent PVCs. Due to multiple medical issues, I feel that she needs to be treated with IV antibiotics, possible 3% saline to correct her sodium, Lasix and rocephin were given in the ER for possible volume overload and UTI that could be causing her hypoxia. Medical History (Updated 11/09/18 @ 06:24 by John Gonzales MD) Afib CHF (congestive heart failure) Coronary heart disease HTN (hypertension) Hyperlipemia Surgical History: Surgical History (Updated 11/08/18 @ 17:10 by John Gonzales MD) History of repair of left hip joint Family History: Family History (Updated 11/08/18 @ 11:16 by Jennifer Ley RN) Other No pertinent family history Social History: Patient Lives/Resources [facility] Utilized Occupation Retired Preferred Language Austrian Do you have any mosque or Yes: Druze cultural preference? Smoking Status Never smoker Have you smoked in the past 12 No months Abuse History No History of abuse Psych History Hx of Anxiety Alcohol Use none Drug Use none No Social History Section defined Review Of Systems (GEN) - Review of Systems Generalized/Overall Review: Present: Weakness, Malaise, Fatigue EENTM: Present: No Symptoms Reported Respiratory: Present: No Symptoms Reported Cardiac: Present: No Symptoms Reported Abdominal: Present: No Symptoms Reported Genitourinary: Present: No Symptoms Reported Musculoskeletal: Present: Joint Pain Neurological: Present: No Symptoms Reported Skin: Present: No Symptoms Reported Endocrine: Present: No Symptoms Reported Immunizations: IMMUNIZATION HX Immunizations Up to Date Yes History of Influenza Vaccine Yes Hx Pneumococcal Vaccination Yes Allergies/Adverse Reactions: Allergies Allergy/AdvReac Type Severity Reaction Status Date / Time morphine AdvReac Mild sick to Verified 11/08/18 11:15 stomach Home Medications: HOME MEDICATIONS Magnesium Hydroxide [Milk of Magnesia] 30 ml PO DAILY PRN 10/04/17 [Last Taken Unknown] Beta-Carotene(A) W-C , E/Min [Ocuvite] 1 tab PO DAILY 10/06/17 [Last Taken 11/08/18] Menthol [Biofreeze] 1 appl TP Q6H PRN 10/06/17 [Last Taken Unknown] Sennosides [Senna Lax] 2 tab PO HS PRN 10/06/17 [Last Taken Unknown] carboxymethylcellulose sodium 0.5 % eye drops 1 drp OP BID #15 ml 02/16/18 [Last Taken Unknown] diltiazem 30 mg tablet 30 mg PO DAILY #30 tab 05/17/18 [Last Taken 11/08/18] melatonin 3 mg tablet 3 mg PO HS #30 tab 05/17/18 [Last Taken 11/07/18] meloxicam 15 mg tablet 15 mg PO DAILY #30 tab 05/17/18 [Last Taken 11/08/18] mirtazapine 15 mg tablet 15 mg PO DAILY #30 tab 05/17/18 [Last Taken 11/07/18] cholecalciferol (vitamin D3) 1,000 unit capsule 1,000 unit PO DAILY #30 cap 05/24/18 [Last Taken Unknown] alprazolam 0.5 mg tablet 0.25 mg PO BID PRN #30 tab 09/22/18 [Last Taken Unknown] clotrimazole 1 % topical cream See Rx Instructions TP BID #45 g 09/26/18 [Last Taken 11/08/18] betamethasone dipropionate 0.05 % topical cream See Rx Instructions .ROUTE .COMPLEX #45 gram 10/10/18 [Last Taken Unknown] vitamins A and D-white petrolatum-lanolin topical ointment See Rx Instructions .ROUTE .COMPLEX #113 gram 10/10/18 [Last Taken Unknown] alprazolam 0.25 mg tablet 0.25 mg PO HS #30 tab 10/30/18 [Last Taken 11/07/18] Aspirin [Lo-Dose Aspirin EC] 81 mg PO DAILY 11/04/18 [Last Taken 11/08/18] tramadol 50 mg tablet 50 mg PO Q6H PRN #60 tab 11/07/18 [Last Taken Unknown] Acetaminophen [Tylenol] 650 mg PO Q4H PRN 11/08/18 [Last Taken Unknown] Bisacodyl [Dulcolax Suppository] 10 mg RC DAILY PRN 11/08/18 [Last Taken Unknown] Polyethylene Glycol 3350 [Miralax] 17 gm PO DAILY 11/08/18 [Last Taken 11/08/18] Exam - Exam Vital Signs: Vital Signs - Last Taken Temp 36.7 C 11/08/18 15:55 Pulse 90 11/08/18 15:55 Resp 18 11/08/18 15:55 BP 116/81 11/08/18 15:55 Pulse Ox 97 11/08/18 15:55 Constitutional: Present: Alert, Oriented x3, Cooperative, No distress, Elderly, Thin and frail ENT Exam: Present: normal ENT inspection, hard of hearing Eye Exam: bilateral eye: normal inspection, PERRL, EOMI Neck: Present: supple Respiratory: Present: no respiratory distress, no accessory muscle use, rales - R base Cardiovascular/Chest: Present: normal peripheral pulses, regular rate, rhythm, no murmur Abdomen: Present: Normal bowel sounds, soft, nontender, no rebound tenderness, no hepatospenomegaly, distended Extremity: Present: no pedal edema, no calf tenderness, other - patient has very significant [place] and Jovi nodes aleta hands. Skin Exam: Present: normal color Neurologic: Present: no motor/sensory deficits, alert, normal mood/affect, oriented x 3 Appearance: Present: appropriate appearance, appropriate insight, neat Eye contact: Present: cooperative, good eye contact, normal speech Thoughts: Present: normal thought pattern, no apparent hallucination Diagnostic Studies: Abnormal Lab Results 11/08/18 11/08/18 11/08/18 Range/Units 11:44 11:44 11:44 WBC 12.9 H (4.0-10.5) K/mm3 Neutrophils % (Manual) 84 H (42-75) % Lymphocytes % (Manual) 10 L (20-51) % Neutrophils # (Manual) 10.8 H (1.3-6.0) K/mm3 Lymphocytes # (Manual) 1.3 L (1.5-3.5) k/mm3 Sodium 127 L (132-142) mmol/L Plasma Sodium 128 L (130-142) mmol/L Potassium 4.9 H (3.4-4.6) mmol/L Chloride 92 L (97-106) mmol/L Anion Gap 15.2 H (6.8-13.8) mmol/L BUN/Creatinine Ratio 31.9 H (9.0-21.6) Random Glucose 150 H (70-110) mg/dL B-Natriuretic Peptide (5-550) pg/mL Albumin 3.0 L (3.4-5.0) gm/dl Urine Nitrate Positive H (NEGATIVE) Urine WBC Trace H (0-5) /hpf Urine Bacteria 3+ H (NONE) 11/08/18 Range/Units 11:44 WBC (4.0-10.5) K/mm3 Neutrophils % (Manual) (42-75) % Lymphocytes % (Manual) (20-51) % Neutrophils # (Manual) (1.3-6.0) K/mm3 Lymphocytes # (Manual) (1.5-3.5) k/mm3 Sodium (132-142) mmol/L Plasma Sodium (130-142) mmol/L Potassium (3.4-4.6) mmol/L Chloride (97-106) mmol/L Anion Gap (6.8-13.8) mmol/L BUN/Creatinine Ratio (9.0-21.6) Random Glucose (70-110) mg/dL B-Natriuretic Peptide 1771 H (5-550) pg/mL Albumin (3.4-5.0) gm/dl Urine Nitrate (NEGATIVE) Urine WBC (0-5) /hpf Urine Bacteria (NONE) Laboratory Results WBC 12.9 K/mm3 (4.0-10.5) H 11/08/18 11:44 RBC 4.29 M/mm3 (4.2-5.4) 11/08/18 11:44 Hgb 12.6 gm/dL (12.5-16.0) 11/08/18 11:44 Hct 37.4 % (37.0-47.0) 11/08/18 11:44 MCV 87.2 fl (78-100) 11/08/18 11:44 MCH 29.4 pg (27-31) 11/08/18 11:44 MCHC 33.7 g/dl (32-36) 11/08/18 11:44 RDW 13.4 % (11.5-14.0) 11/08/18 11:44 Plt Count 157 K/mm3 (150-450) 11/08/18 11:44 MPV 9.9 fl (8-12.5) 11/08/18 11:44 84 % (42-75) H 11/08/18 11:44 10 % (20-51) L 11/08/18 11:44 6 % (0-9) 11/08/18 11:44 10.8 K/mm3 (1.3-6.0) H 11/08/18 11:44 1.3 k/mm3 (1.5-3.5) L 11/08/18 11:44 0.8 k/mm3 (0.0-1.0) 11/08/18 11:44 Normal (NORMAL) 11/08/18 11:44 RBC Morphology Normal (NORMAL) 11/08/18 11:44 Sodium 127 mmol/L (132-142) L 11/08/18 11:44 128 mmol/L (130-142) L 11/08/18 11:44 Potassium 4.9 mmol/L (3.4-4.6) H 11/08/18 11:44 Chloride 92 mmol/L (97-106) L 11/08/18 11:44 Carbon Dioxide 24.7 mmol/L (24-32.6) 11/08/18 11:44 15.2 mmol/L (6.8-13.8) H 11/08/18 11:44 BUN 22 mg/dL (3-23) D 11/08/18 11:44 0.69 mg/dL (0.4-1.4) 11/08/18 11:44 Est GFR (Non-Af Amer) 85 mL/min (60-130) D 11/08/18 11:44 31.9 (9.0-21.6) H 11/08/18 11:44 150 mg/dL (70-110) H 11/08/18 11:44 Calcium 8.9 mg/dL (7.9-10.9) 11/08/18 11:44 Calcium Adj for Albumin 9.4 mg/dL (8.4-10.2) 11/08/18 11:44 1.0 mg/dL (0.0-1.1) 11/08/18 11:44 AST 26 U/L (0-48) 11/08/18 11:44 ALT 31 U/L (19-67) 11/08/18 11:44 105 U/L (50-170) 11/08/18 11:44 B-Natriuretic Peptide 1771 pg/mL (5-550) H 11/08/18 11:44 6.4 gm/dL (6.2-8.2) 11/08/18 11:44 3.0 gm/dl (3.4-5.0) L 11/08/18 11:44 Yellow 11/08/18 11:44 Slightly cloudy (CLEAR) 11/08/18 11:44 6.0 pH (5.0-7.0) 11/08/18 11:44 Ur Specific [place] 1.015 SP.GR. (1.005-1.010) 11/08/18 11:44 Negative mg/dL (NEGATIVE) 11/08/18 11:44 Negative mg/dL (NEGATIVE) 11/08/18 11:44 Negative mg/dL (NEGATIVE) 11/08/18 11:44 Negative /ul (NEGATIVE) 11/08/18 11:44 Positive (NEGATIVE) H 11/08/18 11:44 Negative mg/dl (NEGATIVE) 11/08/18 11:44 Normal EU/dl (NORMAL) 11/08/18 11:44 Ur Leukocyte Esterase Negative /ul (NEGATIVE) 11/08/18 11:44 None seen /hpf (0-5) 11/08/18 11:44 Trace /hpf (0-5) H 11/08/18 11:44 Ur Epithelial Cells Trace /hpf (0-5) 11/08/18 11:44 3+ (NONE) H 11/08/18 11:44 Culture to follow 11/08/18 11:44 Assessment/Plan - Assessment/Plan (1) Afib Assessment: stable and rate controlled, continue diltiazem unchanged. Problem: Chronic Qualifiers: Atrial fibrillation type: chronic Qualified Code(s): I48.2 - Chronic atrial fibrillation (2) Hypertension Assessment: Stable, no changes at this time. Continue current treatment. Problem: Chronic Qualifiers: Hypertension type: essential hypertension Qualified Code(s): I10 - Essential (primary) hypertension (3) Closed right hip fracture Assessment: pain control, treat infections and sodium and hypoxia, plan for surgery on Tuesday. I d/w patient and her 2 sons, who were present in the room, that she would be in hospital at least until Tuesday and then would need SNF for rehab in [place] with goal to RT the [facility]. Problem: Acute Qualifiers: Encounter type: initial encounter Qualified Code(s): S72.001A - Fracture of unspecified part of neck of right femur, initial encounter for closed fracture (4) UTI (urinary tract infection) Assessment: rocephin, await cultures. Problem: Acute Qualifiers: Urinary tract infection type: acute cystitis Hematuria presence: without hematuria Qualified Code(s): N30.00 - Acute cystitis without hematuria (5) Hypoxemia Assessment: due to CHF, possibly RLL pneumonia given rales on exam. UTI's and early sepsis can also contribute to this. I doubt that she had a PE as she had no complaints of CP or SOB on admission, though she does have risk factors for such given previous history and was immobile for a couple days. We will continue O2, lasix given, continue rocephin. Wean O2 as tolerated. Do DVT prophylaxis. Problem: Acute (6) CHF exacerbation Assessment: lasix given x 1, follow weight and I/o's. Problem: Acute Qualifiers: Heart failure type: unspecified Qualified Code(s): I50.9 - Heart failure, unspecified (7) Hyponatremia Assessment: will monitor for now. consider 3% saline to slowly correct, as well as keep fluid volume down due to CHF concerns. Problem: Acute (8) Leukocytosis Assessment: due to UTI, possibly pneumonia. Will continue rocephin 1gm q24hrs for now as it appears to be helping. Problem: Acute (9) Discharge planning issues Assessment: Patient will definitely be here a minimum of 2 midnights as we treat her infe ction, control her pain and correct her sodium and improve her hypoxia. Plan is for her to go to surgery on Tuesday, by which time she should be stable for the surgery. After surgery, PT can be started with anticipated discharge to SNF [facility] early next week. Problem: Acute
[2018-11-08] MEDS: POLYVINYL ALCOHOL 150 DROP BTL OP SCH (21:51)
[2018-11-08] MEDS: MIRTAZAPINE 15 MG TABLET PO SCH (21:52)
[2018-11-08] MEDS: MELATONIN 3,000 MCG TABLET PO SCH (21:52)
[2018-11-08] MEDS: traMADol HCL 50 MG TABLET PO PRN (21:59)
[2018-11-08] MEDS: ALPRAZolam 0.25 MG TABLET PO SCH (22:05)
[2018-11-08] MEDS: CLOTRIMAZOLE/BETAMET DIPROP 15 APPL TUBE TP SCH (22:06)
[2018-11-08 23:45] LABS: Hematocrit 34.5 % (37.0-47.0); Hemoglobin 11.5 gm/dL (12.5-16.0); Mean Cell Volume 87.3 fl (78-100); Mean Corpuscular Hemoglobin 29.1 pg (27-31); Mean Corpuscular Hgb Conc 33.3 g/dl (32-36); Platelet Count 141 K/mm3 (150-450); Red Blood Count 3.95 M/mm3 (4.2-5.4); Red Cell Distribution Width 13.3 % (11.5-14.0); White Blood Count 11.9 K/mm3 (4.0-10.5)
[2018-11-09 00:04] LABS: Total Cells Counted 100
[2018-11-09 00:07] LABS: Anion Gap 13.2 mmol/L (6.8-13.8); BUN/Creatinine Ratio 34.8 (9.0-21.6); Calcium * 8.2 mg/dL (7.9-10.9); Carbon Dioxide 25.1 mmol/L (24-32.6); Estimated Creat Clear 39.4; Potassium 4.3 mmol/L (3.4-4.6)
[2018-11-09 00:43] LABS: Atypical (Reactive) Lymph 1 % (0-2); Band 1 % (0-2.0); Eosinophil 3 % (0-3); Lymphocyte 14 % (20-51); Neutrophil 75 % (42-75); Neutrophil # 8.9 K/mm3 (1.3-6.0)
[2018-11-09 00:44] LABS: Immature Granulocyte 2 (0-1); Monocyte 4 % (0-9); Platelet Estimate Normal (NORMAL); RBC Morphology Normal (NORMAL)
--- NOTE | 2018-11-09 06:31 | PN ---
Subjective - Date and Time Seen Date: 11/09/18 Time: 06:30 Subjective Narrative: Pt. without complaints this am, sleeping comfortably and easily arousable. Review of nursing notes shows she remained comfortable throughout the night, though continued on 4 L NC to keep sats in the mid 90's. I/O's show -750ml. Objective - Review of Systems Generalized/Overall Review: Reports: Fatigue. Denies: Chills, Fever EENTM: Reports: No Symptoms Reported Respiratory: Reports: No Symptoms Reported Cardiac: Reports: No Symptoms Reported Abdominal: Reports: No Symptoms Reported Genitourinary Symptoms: Reports: No Symptoms Reported Musculoskeletal Complaints: Reports: Joint Pain Neurological: Reports: No Symptoms Reported Skin: Reports: No Symptoms Reported Endocrine: Reports: No Symptoms Reported - Vitals Vitals: Last Vital Signs Temp 36.9 C 11/09/18 06:26 Pulse 98 11/09/18 06:26 Resp 20 11/09/18 06:26 BP 125/68 11/09/18 06:26 Pulse Ox 96 11/09/18 06:26 - Abnormal Lab Findings Abnormal Lab Findings: Abnormal Lab Results 11/08/18 11/08/18 11/08/18 Range/Units 11:44 11:44 11:44 WBC 12.9 H (4.0-10.5) K/mm3 RBC (4.2-5.4) M/mm3 Hgb (12.5-16.0) gm/dL Hct (37.0-47.0) % Plt Count (150-450) K/mm3 Neutrophils % (Manual) 84 H (42-75) % Lymphocytes % (Manual) 10 L (20-51) % Immature Granulocytes (0-1) Neutrophils # (Manual) 10.8 H (1.3-6.0) K/mm3 Lymphocytes # (Manual) 1.3 L (1.5-3.5) k/mm3 Sodium 127 L (132-142) mmol/L Plasma Sodium 128 L (130-142) mmol/L Potassium 4.9 H (3.4-4.6) mmol/L Chloride 92 L (97-106) mmol/L Anion Gap 15.2 H (6.8-13.8) mmol/L BUN (3-23) mg/dL BUN/Creatinine Ratio 31.9 H (9.0-21.6) Random Glucose 150 H (70-110) mg/dL B-Natriuretic Peptide (5-550) pg/mL Albumin 3.0 L (3.4-5.0) gm/dl Urine Nitrate Positive H (NEGATIVE) Urine WBC Trace H (0-5) /hpf Urine Bacteria 3+ H (NONE) 11/08/18 11/08/18 11/08/18 Range/Units 11:44 23:44 23:44 WBC 11.9 H (4.0-10.5) K/mm3 RBC 3.95 L (4.2-5.4) M/mm3 Hgb 11.5 L (12.5-16.0) gm/dL Hct 34.5 L (37.0-47.0) % Plt Count 141 L (150-450) K/mm3 Neutrophils % (Manual) (42-75) % Lymphocytes % (Manual) 14 L (20-51) % Immature Granulocytes 2 H (0-1) Neutrophils # (Manual) 8.9 H (1.3-6.0) K/mm3 Lymphocytes # (Manual) (1.5-3.5) k/mm3 Sodium 127 L (132-142) mmol/L Plasma Sodium 127 L (130-142) mmol/L Potassium (3.4-4.6) mmol/L Chloride 93 L (97-106) mmol/L Anion Gap (6.8-13.8) mmol/L BUN 24 H (3-23) mg/dL BUN/Creatinine Ratio 34.8 H (9.0-21.6) Random Glucose (70-110) mg/dL B-Natriuretic Peptide 1771 H (5-550) pg/mL Albumin (3.4-5.0) gm/dl Urine Nitrate (NEGATIVE) Urine WBC (0-5) /hpf Urine Bacteria (NONE) - EKG/Xray Findings EKG: RBBB, other - tachycardia and occ. PVC's EKG read: Reviewed by me XRAY: hip - shows fracture per report - Exam Constitutional: Present: Alert, Cooperative, No distress, Lethargic, Thin and frail ENT Exam: Present: hard of hearing Neck: Present: supple Respiratory: Present: no respiratory distress, no accessory muscle use, rales - RLL but improved from yesterday Cardiovascular/Chest: Present: normal peripheral pulses, regular rate, rhythm, no edema, no murmur Abdomen: Present: Normal bowel sounds, soft, nontender, no rebound tenderness, no hepatospenomegaly, distended Extremity: Present: no pedal edema, no calf tenderness Skin Exam: Present: normal color Neurologic: Present: no motor/sensory deficits, alert, normal mood/affect, oriented x 3 Appearance: Present: appropriate appearance, appropriate insight, neat, no memory impairment Eye contact: Present: cooperative, good eye contact, normal speech Thoughts: Present: normal thought pattern, no apparent hallucination Cauti Physician Documentation - Urinary Catheter Management Urethral (Vazquez) Urethral Indwelling: Yes Reason for Continuing Indwelling Catheter: Prolonged immobilization Date of Insertion: 11/08/18 Time of Insertion: 11:41 Assessment/Plan - Problems/Diagnosis (1) Afib Problem: Chronic Qualifiers: Atrial fibrillation type: chronic Qualified Code(s): I48.2 - Chronic atrial fibrillation Narrative: Stable, no changes at this time. Continue current treatment. (2) Hypertension Problem: Chronic Qualifiers: Hypertension type: essential hypertension Qualified Code(s): I10 - Essential (primary) hypertension Narrative: Stable, no changes at this time. Continue current treatment. (3) Closed right hip fracture Problem: Acute Qualifiers: Encounter type: initial encounter Qualified Code(s): S72.001A - Fracture of unspecified part of neck of right femur, initial encounter for closed fracture Narrative: Pt. pain is well controlled on just the tylenol. would avoid narcotics if possible - use IV tylenol prn. Continue DVT prophylaxis, bedrest. Pt. is stable enough to proceed with surgery, but will continue to treat infection and work on weaning O2 and improving sodium. (4) UTI (urinary tract infection) Problem: Acute Qualifiers: Urinary tract infection type: acute cystitis Hematuria presence: without hematuria Qualified Code(s): N30.00 - Acute cystitis without hematuria Narrative: continue rocephin. WBC is improved (though I meant to have labs done this am instead of last pm. will recheck this afternoon with BMP). (5) Hypoxemia Problem: Acute Narrative: wean O2 as tolerated. Believe her hypoxia is multi-factorial including CHF, UTI and possibly RLL pneumonia. Will continue rocephin. Lasix dosed prn, but did see improvement of her O2 after lasix and rocephin given. (6) CHF exacerbation Problem: Acute Qualifiers: Heart failure type: unspecified Qualified Code(s): I50.9 - Heart failure, unspecified Narrative: improved after lasix. will follow for now. continue strict I/O's and daily w ts. use lasix prn. I feel treating UTI and possibly RLL will also help this. (7) Hyponatremia Problem: Acute Narrative: will do 3% saline starting this am and recheck bmp this afternoon. No significant signs of issues from the low sodium, but want to be sure she is optimized for surgery tomorrow and yet limit her fluid volume due to CHF concerns. (8) Leukocytosis Problem: Acute Qualifiers: Leukocytosis type: bandemia Qualified Code(s): D72.825 - Bandemia Narrative: improved on Abx, will recheck this afternoon. continue abx (9) Discharge planning issues Problem: Acute Narrative: anticipate patient going to surgery tomorrow, as Pt. is stable enough to proceed with surgery, but will continue to treat infection and work on weaning O2 and improving sodium. Anticipate rehab starting over weekend with D/c early next week to [facility] for SNF with goal of [facility].
[2018-11-09] MEDS: SODIUM CHLORIDE 3 % 500 ML IV SCH (07:15)
[2018-11-09] MEDS: traMADol HCL 50 MG TABLET PO PRN (08:44)
[2018-11-09] MEDS: DILTIAZEM HCL 30 MG TABLET PO SCH (08:45)
[2018-11-09] MEDS: POLYVINYL ALCOHOL 150 DROP BTL OP SCH ×2 (08:45→20:21)
[2018-11-09] MEDS: POLYETHYLENE GLYCOL 3350 17 GM PACKET PO SCH (08:46)
[2018-11-09] MEDS: MELOXICAM 15 MG TABLET PO SCH (08:46)
[2018-11-09] MEDS: MIRTAZAPINE 15 MG TABLET PO SCH (08:56)
--- NOTE | 2018-11-09 11:49 | CONS ---
[facility] - General Date of Service: 11/09/18 Narrative: Patient presents to ER for a second time after progressive worsening of right hip pain. No previous x-rays were negative, today's x-rays reveal concern for a fracture. Patient's family notes her pain is been gradually worsening over the past few weeks, there is no acute event or fall that was known. Patient's pain was worse with weightbearing better with rest. She today is resting comfortably in the bed without significant complication, she is slightly unaware of the situation so spoke with the family for significant amount of the history. Source: patient, family - History of Present Illness Allergies/Adverse Reactions: Allergies morphine Adverse Reaction (Mild, Verified 11/08/18 11:15) sick to stomach Home Medications: Home Medications Medication Instructions Recorded Last Taken Magnesium Hydroxide [Milk of 30 ml PO DAILY PRN 10/04/17 Unknown Magnesia] Beta-Carotene(A) W-C , E/Min 1 tab PO DAILY 10/06/17 11/08/18 [Ocuvite] Menthol [Biofreeze] 1 appl TP Q6H PRN 10/06/17 Unknown Sennosides [Senna Lax] 2 tab PO HS PRN 10/06/17 Unknown carboxymethylcellulose sodium 0.5 1 drp OP BID #15 ml 02/16/18 Unknown % eye drops diltiazem 30 mg tablet 30 mg PO DAILY #30 tab 05/17/18 11/08/18 melatonin 3 mg tablet 3 mg PO HS #30 tab 05/17/18 11/07/18 meloxicam 15 mg tablet 15 mg PO DAILY #30 tab 05/17/18 11/08/18 mirtazapine 15 mg tablet 15 mg PO DAILY #30 tab 05/17/18 11/07/18 cholecalciferol (vitamin D3) 1,000 1,000 unit PO DAILY #30 cap 05/24/18 Unknown unit capsule alprazolam 0.5 mg tablet 0.25 mg PO BID PRN #30 tab 09/22/18 Unknown clotrimazole 1 % topical cream See Rx Instructions TP BID #45 g 09/26/18 11/08/18 betamethasone dipropionate 0.05 % See Rx Instructions .ROUTE 10/10/18 Unknown topical cream .COMPLEX #45 gram vitamins A and D-white See Rx Instructions .ROUTE 10/10/18 Unknown petrolatum-lanolin topical ointment .COMPLEX #113 gram alprazolam 0.25 mg tablet 0.25 mg PO HS #30 tab 10/30/18 11/07/18 Aspirin [Lo-Dose Aspirin EC] 81 mg PO DAILY 11/04/18 11/08/18 tramadol 50 mg tablet 50 mg PO Q6H PRN #60 tab 11/07/18 Unknown Acetaminophen [Tylenol] 650 mg PO Q4H PRN 11/08/18 Unknown Bisacodyl [Dulcolax Suppository] 10 mg RC DAILY PRN 11/08/18 Unknown Polyethylene Glycol 3350 [Miralax] 17 gm PO DAILY 11/08/18 11/08/18 Procedures Application of splint (12/26/10) Closure of skin and subcutaneous tissue of other sites (12/26/10) Discission of secondary membrane [after cataract] (05/21/14) Release Right Hand Subcutaneous Tissue and Fascia, Open Approach (08/06/16) Repair Left Lower Arm Subcutaneous Tissue and Fascia, Open Approach (01/31/17) Medications - Medications Current Medications: Current Medications Alprazolam (Xanax) 0.25 mg PO HS [facility] Stop: 12/08/18 21:01 Last Admin: 11/08/18 22:05 Dose: 0.25 mg Documented by: Artificial Tears (Artificial Tears) 1 drop OP BID [facility] Stop: 12/08/18 21:01 Last Admin: 11/09/18 08:45 Dose: 1 drop Documented by: Clotrimazole (Lotrisone Cream) 1 appl TP MoWeFr@0900,2100 [facility] Stop: 12/08/18 21:01 Last Admin: 11/08/18 22:06 Dose: Not Given Documented by: Diltiazem HCl (Cardizem) 30 mg PO DAILY [facility] Stop: 12/09/18 09:01 Last Admin: 11/09/18 08:45 Dose: 30 mg Documented by: Enoxaparin Sodium (Lovenox) 40 mg SC Q24H [facility] Stop: 12/08/18 13:01 Last Admin: 11/08/18 14:17 Dose: 40 mg Documented by: Ceftriaxone Sodium 1,000 mg/ (Dextrose/Water) 100 mls @ 200 mls/hr IV Q24H [facility]; Protocol Stop: 12/08/18 12:46 Last Infusion: 11/08/18 13:14 Dose: Infused Documented by: Sodium Chloride (Hypertonic) (Sodium Chloride 3%) 500 mls @ 30 mls/hr IV .[id number] [facility] Stop: 12/09/18 06:31 Last Admin: 11/09/18 07:15 Dose: 30 mls/hr Documented by: Melatonin (Melatonin) 3,000 mcg PO HS [facility] Stop: 12/08/18 21:01 Last Admin: 11/08/18 21:52 Dose: 3,000 mcg Documented by: Meloxicam (Mobic) 15 mg PO DAILY [facility] Stop: 12/09/18 09:01 Last Admin: 11/09/18 08:46 Dose: 15 mg Documented by: Mirtazapine (Remeron) 15 mg PO DAILY [facility] Stop: 12/08/18 21:01 Last Admin: 11/09/18 08:56 Dose: 15 mg Documented by: Polyethylene Glycol (Miralax) 17 gm PO DAILY [facility] Stop: 12/09/18 09:01 Last Admin: 11/09/18 08:46 Dose: 17 gm Documented by: Tramadol HCl (Ultram) 50 mg PO Q6H PRN PRN Reason: pain Stop: 12/08/18 14:32 Last Admin: 11/09/18 08:44 Dose: 50 mg Documented by: Physical Examination - Exam Vital Signs: Vital Signs - Last Taken Temp 36.0 C 11/09/18 10:00 Pulse 93 11/09/18 10:00 Resp 22 H 11/09/18 10:00 BP 131/66 11/09/18 10:00 Pulse Ox 98 11/09/18 11:00 O2 Oxygen Delivery Method Nasal Cannula Constitutional: Present: Cooperative, No distress Respiratory: Present: no respiratory distress Extremity: Present: other - RLE--> sensation intact to light touch, distal pulses 2+, 5/5 plantar flexion and dorsiflexion of the right foot, diffuse tenderness about right hip, no obvious wounds - Results and Findings: Lab/Microbiology results last 24 hrs: Abnormal/Pending Laboratory Last 24 HRS 11/08/18 11/08/18 11/08/18 23:44 23:44 11:44 WBC 11.9 H RBC 3.95 L Hgb 11.5 L Hct 34.5 L Plt Count 141 L Neutrophils % (Manual) Lymphocytes % (Manual) 14 L Immature Granulocytes 2 H Neutrophils # (Manual) 8.9 H Lymphocytes # (Manual) Sodium 127 L Plasma Sodium 127 L Potassium Chloride 93 L Anion Gap BUN 24 H BUN/Creatinine Ratio 34.8 H Random Glucose B-Natriuretic Peptide 1771 H Albumin Urine Nitrate Urine WBC Urine Bacteria 11/08/18 11/08/18 11/08/18 11:44 11:44 11:44 WBC 12.9 H RBC Hgb Hct Plt Count Neutrophils % (Manual) 84 H Lymphocytes % (Manual) 10 L Immature Granulocytes Neutrophils # (Manual) 10.8 H Lymphocytes # (Manual) 1.3 L Sodium 127 L Plasma Sodium 128 L Potassium 4.9 H Chloride 92 L Anion Gap 15.2 H BUN BUN/Creatinine Ratio 31.9 H Random Glucose 150 H B-Natriuretic Peptide Albumin 3.0 L Urine Nitrate Positive H Urine WBC Trace H Urine Bacteria 3+ H Culture 11/08/18 13:14 - Final Nares MRSA Negative 11/08/18 11:37 Urine Culture - Preliminary Urine,Catheterized Gram Negative Bacilli - Assessments/Findings (1) Closed right hip fracture Problem: Acute Qualifiers: Encounter type: initial encounter Qualified Code(s): S72.001A - Fracture of unspecified part of neck of right femur, initial encounter for closed fracture Plan - Plan Plan: -88 y/o female was admitted with a right hip fracture -Concern for hip fracture found on x-ray, discussed with family treatment options including conservative or surgical intervention and the risk first benefits including but not limited to malunion versus nonunion healing, stroke and cardiac risk, infection, bleeding, continued pain, implant failure, impairment in ability to ambulate. Patient family expressed understanding, they wish to proceed with surgical intervention. Patient will be seen by Dr. Oviedo or Jagdish Dacosta for consent for surgery. Plan to proceed with surgical intervention on 11/10/2018. Currently patient is being seen by internal medicine for optimization prior to surgical intervention. Note patient does have significant abnormalities on metabolic panel as well as CBC. Once patient is medically optimized and consent has been obtained we will proceed with surgical intervention. This will be determined per Dr. Oviedo. Patient's family agree with this treatment plan, will continue with pain control as previously determined.
[2018-11-09] MEDS: ENOXAPARIN SODIUM 40 MG/0.4 ML SYRG SC SCH (13:42)
[2018-11-09 14:11] LABS: Anion Gap 13.3 mmol/L (6.8-13.8); Calcium * 8.3 mg/dL (7.9-10.9); Estimated Creat Clear 54.4; Potassium 4.3 mmol/L (3.4-4.6)
[2018-11-09 14:18] LABS: Hematocrit 35.4 % (37.0-47.0); Hemoglobin 11.6 gm/dL (12.5-16.0); Mean Cell Volume 88.1 fl (78-100); Mean Corpuscular Hemoglobin 28.9 pg (27-31); Mean Corpuscular Hgb Conc 32.8 g/dl (32-36); Mean Platelet Volume 10.3 fl (8-12.5); Platelet Count 158 K/mm3 (150-450); Red Blood Count 4.02 M/mm3 (4.2-5.4); Red Cell Distribution Width 13.2 % (11.5-14.0); White Blood Count 11.5 K/mm3 (4.0-10.5)
[2018-11-09 14:20] LABS: Total Cells Counted 100
--- NOTE | 2018-11-09 14:37 | PN ---
[facility] Note - Interim Date: 11/09/18 Time: 14:32 Narrative: 11/09/18 14:32 pt. sodium has improved to 131. Her EKG still shows occ. PVC, but otherwise has no concerning findings that would disqualify her for surgery. Her WBC's are improving, will continue rocephin 1gm IV q24hrs, pending results of urine culture. she is growing out G(-) in urine. Her appetite has been poor, so will change her to D51/2NS this pm and Make her NPO after MN for possible surgery in the am. diet can be resumed after surgery. Pt. is optimized for surgery and would therefore proceed with surgery tomorrow unless there is significant changes overnight. will hold lovenox today, resuming post op tomorrow and put on HAO river, continuing SCD's.
[2018-11-09 14:52] LABS: Lymphocyte 10 % (20-51); Monocyte 9 % (0-9); Neutrophil 81 % (42-75); Neutrophil # 9.3 K/mm3 (1.3-6.0); Platelet Estimate Normal (NORMAL); RBC Morphology Normal (NORMAL)
[2018-11-09] MEDS ORDERED: DEXTROSE 5%-LACTATED RINGERS 1,000 ML IV PRN (17:00)
[2018-11-09] MEDS: MELATONIN 3,000 MCG TABLET PO SCH (20:20)
[2018-11-09] MEDS: ALPRAZolam 0.25 MG TABLET PO SCH (20:20)
[2018-11-09] MEDS: ACETAMINOPHEN 500 MG TABLET PO PRN (20:20)
[2018-11-10] MEDS: SODIUM CHLORIDE 3 % 500 ML IV SCH ×2 (00:35→15:55)
[2018-11-10] MEDS: traMADol HCL 50 MG TABLET PO PRN ×2 (02:05→15:31)
[2018-11-10] MEDS ORDERED: ceFAZolin SODIUM 1 GM VIAL IV PRN (09:12)
--- NOTE | 2018-11-10 09:14 | PREOP NOTE ---
Preoperative Progress Note - Preoperative Changes Changes to Preop Condition?: No Changes
[2018-11-10] MEDS: ACETAMINOPHEN 500 MG TABLET PO PRN (09:48)
[2018-11-10] MEDS: DILTIAZEM HCL 30 MG TABLET PO SCH (09:51)
[2018-11-10] MEDS: CLOTRIMAZOLE/BETAMET DIPROP 15 APPL TUBE TP SCH ×2 (09:52→20:28)
[2018-11-10] MEDS: POLYVINYL ALCOHOL 150 DROP BTL OP SCH ×2 (09:52→20:28)
[2018-11-10] MEDS: MELOXICAM 15 MG TABLET PO SCH (09:52)
[2018-11-10] MEDS: POLYETHYLENE GLYCOL 3350 17 GM PACKET PO SCH (09:52)
[2018-11-10] MEDS: MIRTAZAPINE 15 MG TABLET PO SCH (09:52)
--- NOTE | 2018-11-10 10:17 | ANES ---
Anesthesia Pre Procedure Eval Vitals/Labs: Last Vital Signs Temp 37.2 C 11/10/18 07:04 Pulse 74 11/10/18 09:51 Resp 22 H 11/10/18 07:04 BP 141/74 11/10/18 09:51 Pulse Ox 92 L 11/10/18 07:04 HOME MEDICATIONS Magnesium Hydroxide [Milk of Magnesia] 30 ml PO DAILY PRN 10/04/17 [Last Taken Unknown] Beta-Carotene(A) W-C , E/Min [Ocuvite] 1 tab PO DAILY 10/06/17 [Last Taken 11/08/18] Menthol [Biofreeze] 1 appl TP Q6H PRN 10/06/17 [Last Taken Unknown] Sennosides [Senna Lax] 2 tab PO HS PRN 10/06/17 [Last Taken Unknown] carboxymethylcellulose sodium 0.5 % eye drops 1 drp OP BID #15 ml 02/16/18 [Last Taken Unknown] diltiazem 30 mg tablet 30 mg PO DAILY #30 tab 05/17/18 [Last Taken 11/08/18] melatonin 3 mg tablet 3 mg PO HS #30 tab 05/17/18 [Last Taken 11/07/18] meloxicam 15 mg tablet 15 mg PO DAILY #30 tab 05/17/18 [Last Taken 11/08/18] mirtazapine 15 mg tablet 15 mg PO DAILY #30 tab 05/17/18 [Last Taken 11/07/18] cholecalciferol (vitamin D3) 1,000 unit capsule 1,000 unit PO DAILY #30 cap 05/24/18 [Last Taken Unknown] alprazolam 0.5 mg tablet 0.25 mg PO BID PRN #30 tab 09/22/18 [Last Taken Unknown] clotrimazole 1 % topical cream See Rx Instructions TP BID #45 g 09/26/18 [Last Taken 11/08/18] betamethasone dipropionate 0.05 % topical cream See Rx Instructions .ROUTE .COMPLEX #45 gram 10/10/18 [Last Taken Unknown] vitamins A and D-white petrolatum-lanolin topical ointment See Rx Instructions .ROUTE .COMPLEX #113 gram 10/10/18 [Last Taken Unknown] alprazolam 0.25 mg tablet 0.25 mg PO HS #30 tab 10/30/18 [Last Taken 11/07/18] Aspirin [Lo-Dose Aspirin EC] 81 mg PO DAILY 11/04/18 [Last Taken 11/08/18] tramadol 50 mg tablet 50 mg PO Q6H PRN #60 tab 11/07/18 [Last Taken Unknown] Acetaminophen [Tylenol] 650 mg PO Q4H PRN 11/08/18 [Last Taken Unknown] Bisacodyl [Dulcolax Suppository] 10 mg RC DAILY PRN 11/08/18 [Last Taken Unknown] Polyethylene Glycol 3350 [Miralax] 17 gm PO DAILY 11/08/18 [Last Taken 11/08/18] Allergies/Adverse Reactions: Allergies Allergy/AdvReac Type Severity Reaction Status Date / Time morphine AdvReac Mild sick to Verified 11/08/18 11:15 stomach - Planned Procedure Planned Procedure: RIGHT HIP FRACTURE Medication List Reviewed:: Yes Allergies Verified: Yes Medical History (Updated 11/09/18 @ 07:41 by John Gonzales MD) Afib CHF (congestive heart failure) Coronary heart disease HTN (hypertension) Hyperlipemia Surgical History (Updated 11/08/18 @ 17:10 by John Gonzales MD) History of repair of left hip joint Family History (Updated 11/08/18 @ 11:16 by Jennifer Ley RN) Other No pertinent family history - Family Anesthesia History Family History:: no untoward family reactions to anesthesia, no familial bleeding tendencies, no family history of clotting disorders, no family history of premature - Airway/Neck/Teeth Teeth Condition: intact Neck Exam: full range of motion Mallampatti Score: 2 Thyromental (T-M) distance: > 6 cm Mandibulo Hyoid distance: > 3 cm - Respiratory Respiratory Physical: crackles, rhonchi Smoking Status: Never smoker Sleep Apnea currently treated: No Sleep Apnea by current assessment: No - Cardiovascular Cardiac History: AL, CHF, CAD, hypertension, hyperlipidemia Tolerate Activity: Poor - with walker Heart Sounds: S1 & S2, Irregular - Anesthesia Assessment and Plan ASA Class: PS, III Anesthesia Type Plan: Spinal
[2018-11-10 10:37] LABS: Hematocrit 34.5 % (37.0-47.0); Hemoglobin 11.5 gm/dL (12.5-16.0); Mean Cell Volume 88.5 fl (78-100); Mean Corpuscular Hemoglobin 29.5 pg (27-31); Mean Corpuscular Hgb Conc 33.3 g/dl (32-36); Platelet Count 171 K/mm3 (150-450); Red Cell Distribution Width 13.4 % (11.5-14.0); White Blood Count 11.6 K/mm3 (4.0-10.5)
[2018-11-10 10:44] LABS: Albumin * 2.4 gm/dl (3.4-5.0); Anion Gap 14.2 mmol/L (6.8-13.8); Ca. Corrected For Albumin 9.2 mg/dL (8.4-10.2); Calcium * 8.2 mg/dL (7.9-10.9); Potassium 4.2 mmol/L (3.4-4.6); Total Cells Counted 100; Total Protein 5.7 gm/dL (6.2-8.2)
[2018-11-10 10:56] LABS: Basophil 1 % (0-1); Eosinophil 1 % (0-3); Lymphocyte 7 % (20-51); Monocyte 15 % (0-9); Neutrophil 76 % (42-75); Neutrophil # 8.8 K/mm3 (1.3-6.0)
[2018-11-10 10:57] LABS: Platelet Estimate Normal (NORMAL); RBC Morphology Normal (NORMAL)
--- NOTE | 2018-11-10 13:31 | PN ---
Subjective - Date and Time Seen Date: 11/10/18 Time: 08:00 Subjective Narrative: Komal Puckett is an 88-year-old female who fell and broke her hip and was admitted through the ER to the service of Dr. Gonzales. I am seeing her in his absence today. I have reevaluated her medically in preparation for her surgery and found her to have some congestive heart failure this morning. I have diuresed her with 80 mg of Lasix and she put out over a liter of urine from that challenge. She continues to have some crackles in the left base but I believe it may be pulmonary fibrosis. The chest x-ray does show interstitial edema however and cardiomegaly. I believe that they take it easy on fluids and surgery that she will do well. Objective - Review of Systems Generalized/Overall Review: Reports: Weakness, Malaise EENTM: Reports: Other - Severe presbycusis Respiratory: Reports: Other - Mild tachypnea Cardiac: Reports: No Symptoms Reported Abdominal: Reports: No Symptoms Reported Genitourinary Symptoms: Reports: No Symptoms Reported, Other - She has a Vazquez catheter in place Musculoskeletal Complaints: Reports: Joint Pain - Due to fractured right hip Neurological: Reports: No Symptoms Reported, Other - Sensorineural hearing loss Skin: Reports: No Symptoms Reported Endocrine: Reports: No Symptoms Reported Misc: All systems neg except as marked - Vitals Vitals: Last Vital Signs Temp 37.1 C 11/10/18 10:00 Pulse 98 11/10/18 10:00 Resp 14 11/10/18 10:00 BP 128/60 11/10/18 10:00 Pulse Ox 92 L 11/10/18 10:00 - Abnormal Lab Findings Abnormal Lab Findings: Abnormal Lab Results 11/09/18 11/09/18 11/10/18 Range/Units 14:00 14:00 10:25 WBC 11.5 H 11.6 H (4.0-10.5) K/mm3 RBC 4.02 L 3.90 L (4.2-5.4) M/mm3 Hgb 11.6 L 11.5 L (12.5-16.0) gm/dL Hct 35.4 L 34.5 L (37.0-47.0) % Neutrophils % (Manual) 81 H 76 H (42-75) % Lymphocytes % (Manual) 10 L 7 L (20-51) % Monocytes % (Manual) 15 H (0-9) % Neutrophils # (Manual) 9.3 H 8.8 H (1.3-6.0) K/mm3 Lymphocytes # (Manual) 1.2 L 0.8 L (1.5-3.5) k/mm3 Monocytes # (Manual) 1.7 H (0.0-1.0) k/mm3 Sodium 131 L (132-142) mmol/L Chloride 96 L (97-106) mmol/L Carbon Dioxide (24-32.6) mmol/L Anion Gap (6.8-13.8) mmol/L BUN/Creatinine Ratio 30.0 H (9.0-21.6) Random Glucose 124 H (70-110) mg/dL ALT (19-67) U/L Total Protein (6.2-8.2) gm/dL Albumin (3.4-5.0) gm/dl 11/10/18 Range/Units 10:25 WBC (4.0-10.5) K/mm3 RBC (4.2-5.4) M/mm3 Hgb (12.5-16.0) gm/dL Hct (37.0-47.0) % Neutrophils % (Manual) (42-75) % Lymphocytes % (Manual) (20-51) % Monocytes % (Manual) (0-9) % Neutrophils # (Manual) (1.3-6.0) K/mm3 Lymphocytes # (Manual) (1.5-3.5) k/mm3 Monocytes # (Manual) (0.0-1.0) k/mm3 Sodium (132-142) mmol/L Chloride (97-106) mmol/L Carbon Dioxide 23.0 L (24-32.6) mmol/L Anion Gap 14.2 H (6.8-13.8) mmol/L BUN/Creatinine Ratio 38.0 H (9.0-21.6) Random Glucose 118 H (70-110) mg/dL ALT 18 L (19-67) U/L Total Protein 5.7 L (6.2-8.2) gm/dL Albumin 2.4 L (3.4-5.0) gm/dl - EKG/Xray Findings EKG read: Reviewed by me XRAY: chest Interpretation: Reviewed by me - Exam Constitutional: Present: Alert, Oriented x3, Cooperative, Well developed, Well nourished, Mild distress, Elderly ENT Exam: Present: normal ENT inspection, pharynx normal, TMs normal, hard of hearing. Absent: hearing grossly normal Neck: Present: non-tender, full range of motion, supple, normal inspection, trachea midline Breasts: Present: Exam deferred Respiratory: Present: chest non-tender, rales - In the left base Cardiovascular/Chest: Present: normal peripheral pulses, no chest tenderness, JVD, extra beats - Frequent PACs, edema Abdomen: Present: Normal bowel sounds, soft, nontender, nondistended, no rebound tenderness, no hepatospenomegaly, no masses /Rectal: Present: Exam deferred Extremity: Present: normal range of motion - Except the right hip which is fractured, normal capillary refill, lower extremity edema, pedal edema Skin Exam: Present: normal color, warm/dry, no cyanosis Lymphatic: Present: no adenopathy Neurologic: Present: health plan specialist II-XII nml as tested Appearance: Present: appropriate appearance, appropriate insight, neat Eye contact: Present: cooperative, good eye contact, normal speech Thoughts: Present: normal thought pattern, no apparent hallucination Cauti Physician Documentation - Urinary Catheter Management Urethral (Vazquez) Urethral Indwelling: Yes Date of Insertion: 11/08/18 Time of Insertion: 11:41 Assessment/Plan Plan Narrative: Komal is received some hypertonic saline yesterday and her repeat sodium was 131 up from 127. Her chest x-ray again shows pulmonary vascular congestion with interstitial edema and cardiomegaly all suggestive of some mild to moderate congestive heart failure. She has a Vazqeuz catheter in place. Lasix 80 mg IV push was given and she has voided greater than 1 L of fluid. She still has some crackles in the left base but this may be pulmonary fibrosis that is also seen on the chest x-ray. At this point I think she is dry enough and medically stable enough that she can proceed with her ORIF of the right hip. Komal is medically approved for her planned ORIF of the right hip. I have reviewed her x-rays, EKGs, laboratory values, and have examined the patient. I will advise anesthesia to be cautious with fluids due to her CHF status. - Problems/Diagnosis (1) Closed right hip fracture Problem: Acute Qualifiers: Encounter type: initial encounter Qualified Code(s): S72.001A - Fracture of unspecified part of neck of right femur, initial encounter for closed fracture (2) CHF exacerbation Problem: Chronic Qualifiers: Heart failure type: unspecified Qualified Code(s): I50.9 - Heart failure, unspecified (3) PAC (premature atrial contraction) Problem: Chronic (4) Hyponatremia Problem: Acute (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 Narrative: This patient is very hard of hearing.
[2018-11-10] MEDS ORDERED: MAG HYDROX/ALUMINUM HYD/SIMETH 30 ML UDC PO PRN (14:29)
--- NOTE | 2018-11-10 14:29 | OR ---
Operative Report - Dictated Report Narrative: Date: 11/10/2018 Surgeon: Arsenio Oviedo M.D. Presiding Steward: Jagdish Dacosta PA-C (provided an essential set of skilled educated handset assisted with transfer, positioning, prepping, draping, placement of instruments, insertion of implants, irrigation, closure wounds, and placement of dressings all which could not be performed by the available surgical crew) Preoperative diagnosis: Closed nondisplaced right Intertrochanteric femur fracture Postoperative diagnosis: Closed nondisplaced right Intertrochanteric femur fracture Operations and procedures: 1. Cephalo-medullary fixation right intertrochanteric femur fracture 2. Intraoperative interpretation of radiographs Anesthesia: Spinal Specimens: None Estimated blood loss: 50 Milliliters Retained implants: [employer] Trigen InterTAN 130 degree size 11.5 mm by 18 centimeter nail with 90 millimeter lag screw and 85 millimeter compression screw, with distal locking screw Complications: None Indications for procedure: Mrs. Puckett is an 88-year-old female who injured the right leg after ground- level fall. They were admitted to the hospital after being evaluated in the emergency department. Once the medical provider felt that they were stable for surgical treatment, the risks and benefits alternatives were discussed. The risks of , blood clots, bleeding, infection, nerve/tendon/blood vessel injury, malunion, nonunion, failure of implants, painful implants, arthrosis, and need for additional procedures were discussed. The extremity was marked and consent was obtained on the floor. Procedure: After marking the operative extremity on the floor, the patient was taken to the operating room. A timeout was performed. IV antibiotics consisting of Ancef were administered. A spinal anesthetic was induced by anesthesia, and the patient was then placed onto a fracture table with a well-padded perineal post. The nonoperative leg was placed in a well-padded traction boot in slight extension without any traction with an SCD on the leg. The operative leg was placed in a well-padded traction boot. Internal rotation, and flexion were utilized in order to visualize the fracture but there was no displacement and thus no reduction was necessary. Preliminary images were attained utilizing C- arm in both the AP and lateral views. This confirmed that we had obtained adequate visualization of the fracture as well as reduction. Next the hip was then prepped and draped in a standard sterile fashion. Next the guidewire was placed percutaneously proximal to the greater trochanter to louise a starting point at the tip of the greater trochanter centered on the lateral view. This was passed down to the level below the lesser trochanter. A scalpel was utilized in order to dissect down to the greater trochanter in order to place the soft tissue protector down to bone. The entry drill was then placed down the proximal femur to the level of the lesser trochanter. The proper size nail was then selected and impacted into place. The outrigger was utilized in order to confirm the appropriate depth of the nail. Using the alignment device on the outrigger, an incision was made over the lateral femur. Sharp dissection was carried through the iliotibial band down to the proximal femur. The guidewire was placed into the femoral head in a center- center position on AP and lateral views. The tip-apex distance of less than 25 mm combined was obtained. Once we felt that we had placed a guidewire in the appropriate position, it was measured. Next the compression screw site was drilled through the lateral femoral cortex. This was then drilled down to the appropriate depth, again confirming that we are within the confines the bone. The derotational bar was then placed and the lag screw was drilled. The lag screw was then secured in place seating fully ensuring that we were wi thin the confines of the bone. The compression screw was then inserted allowing for compression while releasing the traction on the leg. Using C-arm this was visualized to allow for compression across the fracture site. Once is felt that we had adequately stabilized the intertrochanteric fracture, the distal interlocking screw was placed in a dynamic position. It was confirmed to be the appropriate length and within the nail on both AP and lateral views. The nail was secured allowing for controlled compression and the outrigger was removed. The wounds were then thoroughly irrigated. Final images were obtained. The hip was placed through range of motion and showed no crepitance. The deep fascia was closed with 0 Vicryl, the subcutaneous tissue with 3-0 Vicryl, and the skin was closed with yaa. Sterile dressings of Xeroform, 4 x 4, and tape were applied. All sponge, sharp, and instrument counts were correct prior to closing the wounds. The patient was then awoken and transferred to the postanesthesia care unit in stable condition.
--- NOTE | 2018-11-10 14:47 | ANES ---
Post Anesthesia Assessment - Vital Signs Vitals: Last Vital Signs Temp 37.1 C 11/10/18 10:00 Pulse 98 11/10/18 10:00 Resp 14 11/10/18 10:00 BP 128/60 11/10/18 10:00 Pulse Ox 92 L 11/10/18 10:00 Airway Patency: Normal - Mental Status Level Of Consciousness: Awake - Pain Level Pain Score: 0 - N/V Assessment Nausea/Vomiting Presence: None Dehydration:: No
--- NOTE | 2018-11-10 14:47 | ANES ---
Post Anesthesia Discharge - Transfer of Care Transfer of Care handoff given to nurse: Yes - Discharge from PACU Discharge from PACU when meets criteria: Yes
[2018-11-10] MEDS ORDERED: NORMAL SALINE 1,000 ML IV PRN (15:54)
[2018-11-10] MEDS: ceFAZolin SODIUM 1 GM in DEXTROSE 5 % IN WATER 100 ML IV SCH ×4 (15:57→22:50)
--- NOTE | 2018-11-10 18:45 | PN ---
Progess Note - Interim Date: 11/10/18 Time: 18:15 Narrative: 11/10/18 18:40 Komal Puckett had an ORIF of her hip today. Surgery was uncomplicated and she did very well. She is still a bit sleepy and has an oxygen mask on but is breathing well and without complication. She is getting tramadol for pain. Family is at bedside and have no concerns this evening. Objective: Her vital signs are stable and she is afebrile. Skin is warm dry and pale. She is alert and responsive but ataxic and apraxic. Heart has a regular rate and rhythm with extrasystoles and without murmur. The lungs are clear in all rivera. The abdomen is soft. The lower extremities are symmetrical in color and temperature. Pedal pulses are palpable. Neurological exam does not reveal any lateralizing deficits. Her mentation is actually quite good. Impression: Status post ORIF of hip. Plan: Repeat morning lab. Monitor fluids closely. Reassess her congestive heart failure tomorrow morning.
[2018-11-10] MEDS: MELATONIN 3,000 MCG TABLET PO SCH (20:28)
[2018-11-10] MEDS: SENNOSIDES/DOCUSATE SODIUM 1 TAB TABLET PO SCH (20:28)
[2018-11-10] MEDS: ALPRAZolam 0.25 MG TABLET PO SCH (20:29)
[2018-11-11] MEDS: traMADol HCL 50 MG TABLET PO PRN ×4 (04:00→23:03)
[2018-11-11] MEDS: ceFAZolin SODIUM 1 GM in DEXTROSE 5 % IN WATER 100 ML IV SCH ×2 (04:03)
[2018-11-11 06:02] LABS: Hematocrit 29.6 % (37.0-47.0); Hemoglobin 9.5 gm/dL (12.5-16.0); Mean Cell Volume 88.6 fl (78-100); Mean Corpuscular Hemoglobin 28.4 pg (27-31); Mean Corpuscular Hgb Conc 32.1 g/dl (32-36); Mean Platelet Volume 10.2 fl (8-12.5); Neutrophil # 9.3 K/mm3 (1.3-6.0); Neutrophil % 75.6 % (42-75.0); Platelet Count 166 K/mm3 (150-450); Red Blood Count 3.34 M/mm3 (4.2-5.4); Red Cell Distribution Width 13.3 % (11.5-14.0); White Blood Count 12.3 K/mm3 (4.0-10.5)
[2018-11-11 06:22] LABS: Albumin * 2.2 gm/dl (3.4-5.0); Anion Gap 11.6 mmol/L (6.8-13.8); Bilirubin, Total 0.7 mg/dL (0.0-1.1); Ca. Corrected For Albumin 9.3 mg/dL (8.4-10.2); Calcium * 8.2 mg/dL (7.9-10.9); Carbon Dioxide 25.2 mmol/L (24-32.6); Potassium 3.8 mmol/L (3.4-4.6); Total Protein 5.1 gm/dL (6.2-8.2)
[2018-11-11] MEDS ORDERED: FUROSEMIDE 10 MG/ML VIAL IV ONE (08:28)
[2018-11-11] MEDS: POLYVINYL ALCOHOL 150 DROP BTL OP SCH ×2 (08:44→20:25)
[2018-11-11] MEDS: POLYETHYLENE GLYCOL 3350 17 GM PACKET PO SCH (08:45)
[2018-11-11] MEDS: DILTIAZEM HCL 30 MG TABLET PO SCH (08:45)
[2018-11-11] MEDS: MIRTAZAPINE 15 MG TABLET PO SCH (08:45)
--- NOTE | 2018-11-11 10:56 | PN ---
Subjective - Date and Time Seen Date: 11/11/18 Objective - Review of Systems Generalized/Overall Review: Reports: Weakness, Malaise, Fatigue EENTM: Reports: No Symptoms Reported Respiratory: Reports: No Symptoms Reported Cardiac: Reports: No Symptoms Reported Abdominal: Reports: No Symptoms Reported Genitourinary Symptoms: Reports: No Symptoms Reported Musculoskeletal Complaints: Reports: Joint Pain Neurological: Reports: No Symptoms Reported Skin: Reports: No Symptoms Reported Endocrine: Reports: No Symptoms Reported - Vitals Vitals: Last Vital Signs Temp 36.4 C 11/10/18 18:54 Pulse 86 11/11/18 08:45 Resp 20 11/11/18 04:54 BP 118/56 11/11/18 08:45 Pulse Ox 96 11/11/18 04:54 - Abnormal Lab Findings Abnormal Lab Findings: Abnormal Lab Results 11/10/18 11/10/18 11/11/18 Range/Units 10:25 10:25 06:00 WBC 11.6 H 12.3 H (4.0-10.5) K/mm3 RBC 3.90 L 3.34 L (4.2-5.4) M/mm3 Hgb 11.5 L 9.5 L (12.5-16.0) gm/dL Hct 34.5 L 29.6 L (37.0-47.0) % Immature Gran % (Auto) 2.80 H (0.001-0.429) % Immature Gran # (Auto) 0.35 H (0.000-0.0310) K/mm3 Neutrophils % 75.6 H (42-75.0) % Neutrophils % (Manual) 76 H (42-75) % Lymphocytes % 6.6 L (20-51) % Lymphocytes % (Manual) 7 L (20-51) % Monocytes % 12.1 H (0.0-9) % Monocytes % (Manual) 15 H (0-9) % Neutrophils # 9.3 H (1.3-6.0) K/mm3 Neutrophils # (Manual) 8.8 H (1.3-6.0) K/mm3 Lymphocytes # 0.81 L (1.5-3.5) k/mm3 Lymphocytes # (Manual) 0.8 L (1.5-3.5) k/mm3 Monocytes # 1.5 H (0.0-1.0) k/mm3 Monocytes # (Manual) 1.7 H (0.0-1.0) k/mm3 Sodium (132-142) mmol/L Carbon Dioxide 23.0 L (24-32.6) mmol/L Anion Gap 14.2 H (6.8-13.8) mmol/L BUN/Creatinine Ratio 38.0 H (9.0-21.6) Random Glucose 118 H (70-110) mg/dL ALT 18 L (19-67) U/L Total Protein 5.7 L (6.2-8.2) gm/dL Albumin 2.4 L (3.4-5.0) gm/dl 11/11/18 Range/Units 06:00 WBC (4.0-10.5) K/mm3 RBC (4.2-5.4) M/mm3 Hgb (12.5-16.0) gm/dL Hct (37.0-47.0) % Immature Gran % (Auto) (0.001-0.429) % Immature Gran # (Auto) (0.000-0.0310) K/mm3 Neutrophils % (42-75.0) % Neutrophils % (Manual) (42-75) % Lymphocytes % (20-51) % Lymphocytes % (Manual) (20-51) % Monocytes % (0.0-9) % Monocytes % (Manual) (0-9) % Neutrophils # (1.3-6.0) K/mm3 Neutrophils # (Manual) (1.3-6.0) K/mm3 Lymphocytes # (1.5-3.5) k/mm3 Lymphocytes # (Manual) (1.5-3.5) k/mm3 Monocytes # (0.0-1.0) k/mm3 Monocytes # (Manual) (0.0-1.0) k/mm3 Sodium 131 L (132-142) mmol/L Carbon Dioxide (24-32.6) mmol/L Anion Gap (6.8-13.8) mmol/L BUN/Creatinine Ratio 34.0 H (9.0-21.6) Random Glucose 129 H (70-110) mg/dL ALT 16 L (19-67) U/L Total Protein 5.1 L (6.2-8.2) gm/dL Albumin 2.2 L (3.4-5.0) gm/dl - Exam Constitutional: Present: Mild distress, Lethargic, Somnolent ENT Exam: Present: normal ENT inspection Neck: Present: non-tender, full range of motion, supple Breasts: Present: Exam deferred Respiratory: Present: chest non-tender Cardiovascular/Chest: Present: normal peripheral pulses Abdomen: Present: Normal bowel sounds, soft, nontender, nondistended /Rectal: Present: Exam deferred Extremity: Present: leg pain - Due to recent fracture Skin Exam: Present: normal color Lymphatic: Present: no adenopathy Neurologic: Present: accountant certified public II-XII nml as tested, no motor/sensory deficits Appearance: Present: appropriate appearance Eye contact: Present: cooperative Thoughts: Present: normal thought pattern, no apparent hallucination Cauti Physician Documentation - Urinary Catheter Management Urethral (Vazquez) Urethral Indwelling: Yes Date of Insertion: 11/08/18 Time of Insertion: 11:41 Assessment/Plan Plan Narrative: Komal is very weak today. They were able to get her to sit on the edge of the bed with support but she was unable to transfer to chair. She is awake but minimally responsive. She is very lethargic. Her vital signs have been good. Her blood count dropped about 2 g of hemoglobin from preop to postop this morning. Still her hemoglobin is over 11 g and so she should compensate well. White count is normal. Wound dressing is mostly dry. She had a SCD on the left leg but not the right and so nursing is applied the right. Apparently she had some discomfort with it earlier. The exam does not show distended neck veins any HJR is negative. I do not feel any palpable edema in the feet or ankles. Weights show she has gained 3 kg from yesterday. Nursing reported increased crackles in her chest this morning and she was given 80 mg of Lasix IV and is put out over a liter of fluid from that. It is light omari urine. I have disco ntinued her IV fluids and will saline lock her IV. I will repeat lab again tomorrow morning. 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
--- NOTE | 2018-11-11 11:54 | PN ---
Subjective - Date and Time Seen Date: 11/11/18 Time: 11:51 Subjective Narrative: Patient resting in bed. She does respond to questioning. There is a gentleman in the room with her presumably her son. He states that they did get her up with sac and therapy this morning but she would barely put any weight on the right lower extremity. She is pretty weak at this point time. Objective Objective Narrative: Patient is lying comfortably in bed with a rebreather on. Ice pack on right hip dressings clean dry and intact. Right calf is supple. She will plantarflex and dorsiflex both ankles on command. - Vitals Vitals: Last Vital Signs Temp 36.7 C 11/11/18 10:41 Pulse 99 11/11/18 10:41 Resp 20 11/11/18 10:41 BP 132/67 11/11/18 10:41 Pulse Ox 96 11/11/18 10:41 - Abnormal Lab Findings Abnormal Lab Findings: Abnormal Lab Results 11/11/18 11/11/18 Range/Units 06:00 06:00 WBC 12.3 H (4.0-10.5) K/mm3 RBC 3.34 L (4.2-5.4) M/mm3 Hgb 9.5 L (12.5-16.0) gm/dL Hct 29.6 L (37.0-47.0) % Immature Gran % (Auto) 2.80 H (0.001-0.429) % Immature Gran # (Auto) 0.35 H (0.000-0.0310) K/mm3 Neutrophils % 75.6 H (42-75.0) % Lymphocytes % 6.6 L (20-51) % Monocytes % 12.1 H (0.0-9) % Neutrophils # 9.3 H (1.3-6.0) K/mm3 Lymphocytes # 0.81 L (1.5-3.5) k/mm3 Monocytes # 1.5 H (0.0-1.0) k/mm3 Sodium 131 L (132-142) mmol/L BUN/Creatinine Ratio 34.0 H (9.0-21.6) Random Glucose 129 H (70-110) mg/dL ALT 16 L (19-67) U/L Total Protein 5.1 L (6.2-8.2) gm/dL Albumin 2.2 L (3.4-5.0) gm/dl Cauti Physician Documentation - Urinary Catheter Management Urethral (Vazquez) Urethral Indwelling: Yes Date of Insertion: 11/08/18 Time of Insertion: 11:41 Assessment/Plan - Problems/Diagnosis (1) Acute blood loss anemia Problem: Acute Narrative: Per medical management (2) Closed right hip fracture Problem: Acute Qualifiers: Encounter type: initial encounter Qualified Code(s): S72.001A - Fracture of unspecified part of neck of right femur, initial encounter for closed fracture Narrative: PT, pain control, anticoagulation, medical management of comorbidities.
[2018-11-11] MEDS: RIVAROXABAN 20 MG TABLET PO SCH (12:50)
[2018-11-11] MEDS: ACETAMINOPHEN 500 MG TABLET PO PRN ×2 (12:50→19:10)
[2018-11-11] MEDS: ALPRAZolam 0.25 MG TABLET PO SCH (20:26)
[2018-11-11] MEDS: MELATONIN 3,000 MCG TABLET PO SCH (20:26)
[2018-11-11] MEDS: SENNOSIDES/DOCUSATE SODIUM 1 TAB TABLET PO SCH (20:26)
[2018-11-12 06:00] LABS: Hematocrit 31.2 % (37.0-47.0); Hemoglobin 10.2 gm/dL (12.5-16.0); Mean Cell Volume 89.1 fl (78-100); Mean Corpuscular Hemoglobin 29.1 pg (27-31); Mean Corpuscular Hgb Conc 32.7 g/dl (32-36); Mean Platelet Volume 9.9 fl (8-12.5); Platelet Count 193 K/mm3 (150-450); Red Cell Distribution Width 13.6 % (11.5-14.0); White Blood Count 11.7 K/mm3 (4.0-10.5)
[2018-11-12 06:10] LABS: Anion Gap 9.8 mmol/L (6.8-13.8); BUN/Creatinine Ratio 42.1 (9.0-21.6); Calcium * 8.7 mg/dL (7.9-10.9); Carbon Dioxide 29.7 mmol/L (24-32.6); Estimated Creat Clear 47.7; Potassium 3.5 mmol/L (3.4-4.6)
[2018-11-12 06:14] LABS: Total Cells Counted 100
[2018-11-12] MEDS: traMADol HCL 50 MG TABLET PO PRN ×3 (06:18→18:48)
[2018-11-12 06:44] LABS: Eosinophil 2 % (0-3); Lymphocyte 20 % (20-51); Monocyte 3 % (0-9); Neutrophil 75 % (42-75); Neutrophil # 8.8 K/mm3 (1.3-6.0)
[2018-11-12 06:45] LABS: Hypochromia 1+; Platelet Estimate Normal (NORMAL)
[2018-11-12] MEDS: POLYVINYL ALCOHOL 150 DROP BTL OP SCH ×2 (08:05→20:30)
[2018-11-12] MEDS: MIRTAZAPINE 15 MG TABLET PO SCH (08:05)
[2018-11-12] MEDS: DILTIAZEM HCL 30 MG TABLET PO SCH (08:05)
[2018-11-12] MEDS: POLYETHYLENE GLYCOL 3350 17 GM PACKET PO SCH (08:05)
[2018-11-12] MEDS: RIVAROXABAN 20 MG TABLET PO SCH (08:05)
--- NOTE | 2018-11-12 14:11 | PN ---
Subjective - Date and Time Seen Date: 11/12/18 Time: 13:00 Subjective Narrative: Komal seems to be doing better today. They were able to get her up from bed and into a chair using a Cristy lift. She was put back to bed the same way. She ate a fairly good breakfast but has not eaten much since then. She is quite sleepy from the pain medication but seems to be comfortable. She is more alert and responsive than yesterday. She has not voiced any complaints or requests. The family is pleased with her improvement today. Her vital signs have been stable. Her last blood pressure is up slightly at 158 systolic. She is only gained 3/10 of a kilo in weight since yesterday. She had good response to the 80 of Lasix I gave yesterday. Her catheter needs to come out and I will not re-diurese today as there are no physical findings suggesting congestive failure. Her breathing is no longer tachypneic and she is no longer requiring an oxygen mask. She is on a nasal cannula. Her laboratory this morning is essentially unchanged except the hemoglobin is back up to 10.2 g. (From 9.5 yesterday) it does not appear she will require transfusing.. I we will continue to maintain heparin locked IV. I discontinued her IV fluids yesterday. We will continue to progress her activity as tolerated. Dr. Gonzales will resume her care tomorrow morning. Morning labs ordered. Objective - Review of Systems Generalized/Overall Review: Reports: Weakness EENTM: Reports: No Symptoms Reported Respiratory: Reports: Shortness of Breath - Improved Cardiac: Reports: No Symptoms Reported Abdominal: Reports: No Symptoms Reported Genitourinary Symptoms: Reports: No Symptoms Reported Musculoskeletal Complaints: Reports: Joint Pain - Right hip pain from recent fracture and ORIF Neurological: Reports: No Symptoms Reported Skin: Reports: No Symptoms Reported Endocrine: Reports: No Symptoms Reported Misc: All systems neg except as marked - Vitals Vitals: Last Vital Signs Temp 36.5 C 11/12/18 12:50 Pulse 99 11/12/18 12:50 Resp 20 11/12/18 12:50 BP 152/66 H 11/12/18 12:50 Pulse Ox 95 11/12/18 12:50 - Abnormal Lab Findings Abnormal Lab Findings: Abnormal Lab Results 07/14/19 07/14/19 Range/Units 05:59 05:59 WBC 11.7 H (4.0-10.5) K/mm3 RBC 3.50 L (4.2-5.4) M/mm3 Hgb 10.2 L (12.5-16.0) gm/dL Hct 31.2 L (37.0-47.0) % Neutrophils # (Manual) 8.8 H (1.3-6.0) K/mm3 Chloride 96 L (97-106) mmol/L BUN 24 H (3-23) mg/dL BUN/Creatinine Ratio 42.1 H (9.0-21.6) Random Glucose 120 H (70-110) mg/dL - Exam Constitutional: Present: Well developed, Well nourished, No distress, Lethargic, Somnolent, Elderly - And frail ENT Exam: Present: normal ENT inspection, hard of hearing Neck: Present: non-tender, supple, normal inspection, trachea midline, limited range of motion Breasts: Present: Exam deferred Respiratory: Present: chest non-tender, crackles - In the right lateral chest Cardiovascular/Chest: Present: normal peripheral pulses, regular rate, rhythm, no chest tenderness, no edema, no gallop, no JVD, no murmur, no rub Abdomen: Present: Normal bowel sounds, soft, nontender, nondistended, no rebound tenderness, no hepatospenomegaly, no masses /Rectal: Present: Exam deferred Extremity: Present: normal range of motion Skin Exam: Present: normal color Lymphatic: Present: no adenopathy Neurologic: Present: condenser tester II-XII nml as tested Appearance: Present: appropriate appearance Eye contact: Present: good eye contact Thoughts: Present: normal thought pattern, no apparent hallucination Cauti Physician Documentation - Urinary Catheter Management Urethral (Vazquez) Cath placed during this visit: Yes Urethral Indwelling: No Reason for Continuing Indwelling Catheter: Decision made to DC Date of Insertion: 11/08/18 Time of Insertion: 11:41 Date of Removal: 11/12/18 Time of Removal: 14:03 Assessment/Plan - Problems/Diagnosis (1) Closed right hip fracture Problem: Acute Qualifiers: Encounter type: initial encounter Qualified Code(s): S72.001A - Fracture of unspecified part of neck of right femur, initial encounter for closed fracture (2) CHF exacerbation Problem: Chronic Qualifiers: Heart failure type: unspecified Qualified Code(s): I50.9 - Heart failure, unspecified (3) PAC (premature atrial contraction) Problem: Chronic (4) Hyponatremia Problem: Acute (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
[2018-11-12] MEDS: SENNOSIDES/DOCUSATE SODIUM 1 TAB TABLET PO SCH (20:29)
[2018-11-12] MEDS: ALPRAZolam 0.25 MG TABLET PO SCH (20:29)
[2018-11-12] MEDS: MELATONIN 3,000 MCG TABLET PO SCH (20:30)
[2018-11-12] MEDS: SULFAMETHOXAZOLE/TRIMETHOPRIM 1 TAB TABLET PO SCH (21:16)
[2018-11-13] MEDS: traMADol HCL 50 MG TABLET PO PRN (02:59)
[2018-11-13 06:24] LABS: Albumin * 2.3 gm/dl (3.4-5.0); Anion Gap 10.7 mmol/L (6.8-13.8); Bilirubin, Total 0.8 mg/dL (0.0-1.1); Ca. Corrected For Albumin 9.4 mg/dL (8.4-10.2); Calcium * 8.4 mg/dL (7.9-10.9); Carbon Dioxide 28.2 mmol/L (24-32.6); Hematocrit 31.4 % (37.0-47.0); Hemoglobin 10.2 gm/dL (12.5-16.0); Mean Cell Volume 88.7 fl (78-100); Mean Corpuscular Hemoglobin 28.8 pg (27-31); Mean Corpuscular Hgb Conc 32.5 g/dl (32-36); Mean Platelet Volume 10.1 fl (8-12.5); Platelet Count 237 K/mm3 (150-450); Potassium 3.9 mmol/L (3.4-4.6); Red Blood Count 3.54 M/mm3 (4.2-5.4); Red Cell Distribution Width 13.4 % (11.5-14.0); Total Protein 5.4 gm/dL (6.2-8.2); White Blood Count 11.6 K/mm3 (4.0-10.5)
[2018-11-13 06:28] LABS: Total Cells Counted 100
[2018-11-13 07:06] LABS: Eosinophil 5 % (0-3); Lymphocyte 17 % (20-51); Monocyte 9 % (0-9); Neutrophil 69 % (42-75)
[2018-11-13 07:07] LABS: Platelet Estimate Normal (NORMAL); RBC Morphology Normal (NORMAL)
--- NOTE | 2018-11-13 07:15 | PN ---
Subjective - Date and Time Seen Date: 11/13/18 Time: 07:04 Subjective Narrative: Pt. without complaints this am, awake and alert. Review of nursing notes shows she remained comfortable throughout the night, though continued on 3 L NC to keep sats in the mid to upper 90's. She has not been very mobile, requiring amanda lifts to transfer, though pain control is documented as good with tramadol. appetite has been poor. Objective - Review of Systems Generalized/Overall Review: Reports: No Symptoms Reported EENTM: Reports: No Symptoms Reported Respiratory: Reports: Other - requiring O2 to keep sats up Cardiac: Denies: Chest Pain, Edema, Palpitations Abdominal: Denies: Nausea, Vomiting, Abdominal Pain, Constipation Genitourinary Symptoms: Denies: No Symptoms Reported Musculoskeletal Complaints: Reports: Joint Pain Neurological: Reports: Emotional Problems - anxious Skin: Reports: No Symptoms Reported Endocrine: Reports: No Symptoms Reported - Vitals Vitals: Last Vital Signs Temp 36.3 C 11/13/18 06:58 Pulse 101 H 11/13/18 06:58 Resp 20 11/13/18 06:58 BP 127/70 11/13/18 06:58 Pulse Ox 96 11/13/18 06:58 - Abnormal Lab Findings Abnormal Lab Findings: Abnormal Lab Results 11/13/18 11/13/18 Range/Units 05:45 05:45 WBC 11.6 H (4.0-10.5) K/mm3 RBC 3.54 L (4.2-5.4) M/mm3 Hgb 10.2 L (12.5-16.0) gm/dL Hct 31.4 L (37.0-47.0) % Sodium 130 L (132-142) mmol/L Chloride 95 L (97-106) mmol/L BUN 24 H (3-23) mg/dL BUN/Creatinine Ratio 50.0 H (9.0-21.6) Random Glucose 111 H (70-110) mg/dL ALT 14 L (19-67) U/L Total Protein 5.4 L (6.2-8.2) gm/dL Albumin 2.3 L (3.4-5.0) gm/dl - Exam Constitutional: Present: Alert, Oriented x3, Cooperative, Mild distress, Elderly, Thin and frail ENT Exam: Present: hard of hearing Neck: Present: supple Respiratory: Present: rales - aleta bases, minimal, expiration (prolonged). Absent: rhonchi, wheezing Cardiovascular/Chest: Present: normal peripheral pulses, regular rate, rhythm - with occ. ectopy, systolic murmur - 2/6 RUSB Abdomen: Present: Normal bowel sounds, soft, nontender, distended - but soft, very gaseous - hollow to percussion. Absent: no rebound tenderness, tender, guarding, rigidity Extremity: Present: other - dressing dry and clean Skin Exam: Present: normal color Neurologic: Present: alert, oriented x 3, other - anxious Appearance: Present: appropriate appearance, neat Eye contact: Present: cooperative, good eye contact, normal speech Thoughts: Present: normal thought pattern, no apparent hallucination Cauti Physician Documentation - Urinary Catheter Management Urethral (Vazquez) Urethral Indwelling: No Date of Insertion: 11/08/18 Time of Insertion: 11:41 Date of Removal: 11/12/18 Time of Removal: 14:03 Assessment/Plan - Problems/Diagnosis (1) Afib Problem: Chronic Qualifiers: Atrial fibrillation type: chronic Qualified Code(s): I48.2 - Chronic atrial fibrillation Narrative: appears to be in NSR with frequent PVC's. continue to follow for now. Rate is controlled. (2) Hypertension Problem: Chronic Qualifiers: Hypertension type: essential hypertension Qualified Code(s): I10 - Essential (primary) hypertension Narrative: Stable, no changes at this time. Continue current treatment. (3) Closed right hip fracture Problem: Acute Qualifiers: Encounter type: initial encounter Qualified Code(s): S72.001A - Fracture of unspecified part of neck of right femur, initial encounter for closed fracture Narrative: repair by ortho, continue PT to rehab. Pt. can go to NH when appropriately doing PT. (4) UTI (urinary tract infection) Problem: Acute Qualifiers: Urinary tract infection type: acute cystitis Hematuria presence: without hematuria Qualified Code(s): N30.00 - Acute cystitis without hematuria Narrative: Culture showed E. Coli. She had 3 days of IV rocephin which should be enough, but her WBC remain elevated so started bactrim last PM and will do this for 5 days. (5) Hypoxemia Problem: Acute Narrative: still requiring O2. continue pulmonary IS. consider duoneb to see if this would help. Wean O2 as tolerated. Could be multiple injuries to lungs incl uding CHF, Pulmonary HTN from previous PE or poor EF from CHF or possibly some underlying lung disease. consider ECHO. Consider metoprolol to help with rate and EF but this can sometimes cause issues with fatigue and breathing. (6) CHF exacerbation Problem: Chronic Qualifiers: Heart failure type: unspecified Qualified Code(s): I50.9 - Heart failure, unspecified Narrative: stable today. do Lasix prn (7) Hyponatremia Problem: Acute Narrative: Stable, no changes at this time. Continue current treatment. (8) Leukocytosis Problem: Acute Qualifiers: Leukocytosis type: bandemia Qualified Code(s): D72.825 - Bandemia Narrative: remains elevated. continue bactrim. (9) Discharge planning issues Problem: Acute Narrative: Would like to see patient off O2 prior to discharge, but she is ok to be discharge on O2 with weaning as outpatient, if insurance will pay for this. She does need to do better in PT today in order to continue PT outpt, with goal of RT [place].
[2018-11-13] MEDS: ACETAMINOPHEN 500 MG TABLET PO PRN (08:34)
[2018-11-13] MEDS: POLYVINYL ALCOHOL 150 DROP BTL OP SCH ×2 (08:35→20:07)
[2018-11-13] MEDS: DILTIAZEM HCL 30 MG TABLET PO SCH (08:35)
[2018-11-13] MEDS: MIRTAZAPINE 15 MG TABLET PO SCH (08:35)
[2018-11-13] MEDS: POLYETHYLENE GLYCOL 3350 17 GM PACKET PO SCH (08:35)
[2018-11-13] MEDS: SULFAMETHOXAZOLE/TRIMETHOPRIM 1 TAB TABLET PO SCH ×2 (08:35→20:07)
[2018-11-13] MEDS: CLOTRIMAZOLE/BETAMET DIPROP 15 APPL TUBE TP SCH ×2 (08:35→20:09)
[2018-11-13] MEDS: RIVAROXABAN 20 MG TABLET PO SCH (08:35)
--- NOTE | 2018-11-13 15:49 | PN ---
Subjective - Date and Time Seen Date: 11/13/18 Time: 15:48 Subjective Narrative: Subjective: Reports constipation and irritation of her abdomen. Was able to get up to the chair with therapy. Pain is well-controlled. Voiding without any complications. Tolerating by mouth intake. Denies calf pain. Physical exam: Alert and oriented to person, place and time Right lower Extremity: Palpable dorsalis pedis pulse. Sensation grossly intact to light touch. Dressings clean and dry. Able to flex and extend ankle and toes. No excessive drainage. Calf and thigh are soft and nontender. Assessment: Postop day 3 status post right hip internal medullary nailing. Plan: Continue bowel regimen. Continue with physical and occupational therapy weightbearing as tolerated. Continue with anticoagulation - she will need 6 weeks of DVT prophylaxis. Pain control with goal to rely on oral medications. Continue bowel regimen. Will need 6 weeks with walker or assitive device to protect joint while ambulating during the recovery process. Discharge planning. Okay to discharge or return to a skilled/nursing facility when stable medically. Keep her wounds clean and dry. Cover with dry gauze and tape. Change every 2-3 days as needed. She will return in approximately 2 weeks for removal of yaa. Continue weightbearing with range of motion as tolerated with therapy. Objective - Vitals Vitals: Last Vital Signs Temp 36.6 C 11/13/18 13:48 Pulse 101 H 11/13/18 13:48 Resp 16 11/13/18 13:48 BP 141/79 11/13/18 13:48 Pulse Ox 97 11/13/18 13:48 - Abnormal Lab Findings Abnormal Lab Findings: Abnormal Lab Results 11/13/18 11/13/18 Range/Units 05:45 05:45 WBC 11.6 H (4.0-10.5) K/mm3 RBC 3.54 L (4.2-5.4) M/mm3 Hgb 10.2 L (12.5-16.0) gm/dL Hct 31.4 L (37.0-47.0) % Lymphocytes % (Manual) 17 L (20-51) % Eosinophils % (Manual) 5 H (0-3) % Neutrophils # (Manual) 8.0 H (1.3-6.0) K/mm3 Sodium 130 L (132-142) mmol/L Chloride 95 L (97-106) mmol/L BUN 24 H (3-23) mg/dL BUN/Creatinine Ratio 50.0 H (9.0-21.6) Random Glucose 111 H (70-110) mg/dL ALT 14 L (19-67) U/L Total Protein 5.4 L (6.2-8.2) gm/dL Albumin 2.3 L (3.4-5.0) gm/dl Cauti Physician Documentation - Urinary Catheter Management Urethral (Vazquez) Urethral Indwelling: No Date of Insertion: 11/08/18 Time of Insertion: 11:41 Date of Removal: 11/12/18 Time of Removal: 14:03
[2018-11-13] MEDS: MELATONIN 3,000 MCG TABLET PO SCH (20:09)
[2018-11-13] MEDS: SENNOSIDES/DOCUSATE SODIUM 1 TAB TABLET PO SCH (20:10)
[2018-11-13] MEDS: ALPRAZolam 0.25 MG TABLET PO SCH (20:15)
[2018-11-13] MEDS: KETOROLAC TROMETHAMINE 15 MG/ML VIAL IV PRN (20:26)
[2018-11-14] MEDS: ACETAMINOPHEN 500 MG TABLET PO PRN (00:21)
[2018-11-14] MEDS ORDERED: METOPROLOL TARTRATE 25 MG TABLET PO SCH (07:00)
--- NOTE | 2018-11-14 07:11 | DS ---
(1) Afib Problem: Chronic Qualifiers: Atrial fibrillation type: chronic Qualified Code(s): I48.2 - Chronic atrial fibrillation (2) Hypertension Problem: Chronic Qualifiers: Hypertension type: essential hypertension Qualified Code(s): I10 - Essential (primary) hypertension (3) Closed right hip fracture Problem: Acute Qualifiers: Encounter type: initial encounter Qualified Code(s): S72.001A - Fracture of unspecified part of neck of right femur, initial encounter for closed fracture (4) UTI (urinary tract infection) Problem: Acute Qualifiers: Urinary tract infection type: acute cystitis Hematuria presence: without hematuria Qualified Code(s): N30.00 - Acute cystitis without hematuria (5) Hypoxemia Problem: Acute (6) CHF exacerbation Problem: Chronic Qualifiers: Heart failure type: unspecified Qualified Code(s): I50.9 - Heart failure, unspecified (7) Hyponatremia Problem: Acute (8) Leukocytosis Problem: Acute Qualifiers: Leukocytosis type: bandemia Qualified Code(s): D72.825 - Bandemia (9) Discharge planning issues Problem: Acute Description of Stay: Pt. admitted for R hip fracture, plus had the following issues: UTI: treated with rocephin 1gm IV x 3 days, plus bactrim DS po bid x 5 days (on this at discharge) Hypoxia: unsure etiology, but feel it was mainly due to CHF. she diuresed well, but still required O2, but was weaned to 1LNC and stayed 93%. did add duoneb treatments to her regimen to see if this helps her breathing and helps wean her off O2. CHF: received 2 doses of lasix 20mg and 80mg and did well. Not requiring continued lasix, but may need prn. Was on diltiazem for history of Afib, which can contribute to CHF. did have pvc's in hospital but no sustained runs of Afib. Added metoprolol for rate control and improved inotropic effect vs the diltiazem she was on. will look to d/c the diltiazem in 1 wk, sooner if SBP's drop < 100. would watch salt intake and do daily weights. R Hip fracture: S/p medullary nail repair of the right hip by ortho. Will need xarelto for 6 wks, will need SNF [place] with PT/OT to try to return to baseline function and [facility]. Pain control was attempted with tramadol, but patient was too somnolent with this. Tylenol appears to be helping well. She did have a couple doses of toradol, but this does increase risk of worsening her CHF. May do meloxicam in the [place] if pain control needed beyond tylenol. Anemia: post op from acute blood loss, remained stable. Hyponatremia: to 127, received 3% NS and then IVF of LR which did correct to 131-132. she was not symptomatic. Procedures Performed: see notes below List Procedures: medullary nailing of R hip by ortho Results and Findings: Lab Pending Results 11/08/18 11:44: WBC 12.9 H, RBC 4.29, Hgb 12.6, Hct 37.4, MCV 87.2, MCH 29.4, MCHC 33.7, RDW 13.4, Plt Count 157, MPV 9.9, Neutrophils % (Manual) 84 H, Lymphocytes % (Manual) 10 L, Monocytes % (Manual) 6, Neutrophils # (Manual) 10.8 H, Lymphocytes # (Manual) 1.3 L, Monocytes # (Manual) 0.8, Platelet Estimate Normal, RBC Morphology Normal 11/08/18 11:44: Sodium 127 L, Plasma Sodium 128 L, Potassium 4.9 H, Chloride 92 L, Carbon Dioxide 24.7, Anion Gap 15.2 H, BUN 22 D, Creatinine 0.69, Est GFR (Non-Af Amer) 85 D, BUN/Creatinine Ratio 31.9 H, Random Glucose 150 H, Calcium 8.9, Calcium Adj for Albumin 9.4, Total Bilirubin 1.0, AST 26, ALT 31, Alkaline Phosphatase 105, Total Protein 6.4, Albumin 3.0 L 11/08/18 11:44: Urine Color Yellow, Urine Appearance Slightly cloudy, Urine pH 6.0, Ur Specific [place] 1.015, Urine Protein Negative, Urine Glucose (UA) Negative, Urine Ketones Negative, Urine Blood Negative, Urine Nitrate Positive H, Urine Bilirubin Negative, Urine Urobilinogen Normal, Ur Leukocyte Esterase Negative, Urine RBC None seen, Urine WBC Trace H, Ur Epithelial Cells Trace, Urine Bacteria 3+ H, Urine Culture Comments Culture to follow 11/08/18 11:44: B-Natriuretic Peptide 1771 H 11/08/18 23:44: WBC 11.9 H, RBC 3.95 L, Hgb 11.5 L, Hct 34.5 L, MCV 87.3, MCH 29.1, MCHC 33.3, RDW 13.3, Plt Count 141 L, MPV 10.0, Neutrophils % (Manual) 75, Band Neuts % (Manual) 1, Lymphocytes % (Manual) 14 L, Monocytes % (Manual) 4, Eosinophils % (Manual) 3, Immature Granulocytes 2 H, Neutrophils # (Manual) 8.9 H, Lymphocytes # (Manual) 1.7, Monocytes # (Manual) 0.5, Eosinophils # (Manual) 0.4, Atypic/Reactive Lymphs 1, Platelet Estimate Normal, RBC Morphology Normal 11/08/18 23:44: Sodium 127 L, Plasma Sodium 127 L, Potassium 4.3, Chloride 93 L, Carbon Dioxide 25.1, Anion Gap 13.2, BUN 24 H, Creatinine 0.69, Est GFR (Non-Af Amer) 85, BUN/Creatinine Ratio 34.8 H, Random Glucose 106, Calcium 8.2 11/09/18 14:00: Sodium 131 L, Plasma Sodium 131, Potassium 4.3, Chloride 96 L, Carbon Dioxide 26.0, Anion Gap 13.3, BUN 15, Creatinine 0.50, Est GFR (Non-Af Amer) 123 D, BUN/Creatinine Ratio 30.0 H, Random Glucose 124 H, Calcium 8.3 11/09/18 14:00: WBC 11.5 H, RBC 4.02 L, Hgb 11.6 L, Hct 35.4 L, MCV 88.1, MCH 28.9, MCHC 32.8, RDW 13.2, Plt Count 158, MPV 10.3, Neutrophils % (Manual) 81 H, Lymphocytes % (Manual) 10 L, Monocytes % (Manual) 9, Neutrophils # (Manual) 9.3 H, Lymphocytes # (Manual) 1.2 L, Monocytes # (Manual) 1.0, Platelet Estimate Normal, RBC Morphology Normal 11/10/18 10:25: WBC 11.6 H, RBC 3.90 L, Hgb 11.5 L, Hct 34.5 L, MCV 88.5, MCH 29.5, MCHC 33.3, RDW 13.4, Plt Count 171, MPV 10.0, Neutrophils % (Manual) 76 H, Lymphocytes % (Manual) 7 L, Monocytes % (Manual) 15 H, Eosinophils % (Manual) 1, Basophils % (Manual) 1, Neutrophils # (Manual) 8.8 H, Lymphocytes # (Manual) 0.8 L, Monocytes # (Manual) 1.7 H, Eosinophils # (Manual) 0.1, Basophils # (Manual) 0.1, Platelet Estimate Normal, RBC Morphology Normal 11/10/18 10:25: Sodium 132, Plasma Sodium 132, Potassium 4.2, Chloride 99, Carbon Dioxide 23.0 L, Anion Gap 14.2 H, BUN 19, Creatinine 0.50, Est GFR (Non- Af Amer) 123, BUN/Creatinine Ratio 38.0 H, Random Glucose 118 H, Calcium 8.2, Calcium Adj for Albumin 9.2, Total Bilirubin 1.0, AST 18, ALT 18 L, Alkaline Phosphatase 99, Total Protein 5.7 L, Albumin 2.4 L 11/11/18 06:00: WBC 12.3 H, RBC 3.34 L, Hgb 9.5 L, Hct 29.6 L, MCV 88.6, MCH 28.4, MCHC 32.1, RDW 13.3, Plt Count 166, MPV 10.2, Immature Gran % (Auto) 2.80 H, Immature Gran # (Auto) 0.35 H, Neutrophils % 75.6 H, Lymphocytes % 6.6 L, Monocytes % 12.1 H, Eosinophils % 2.3, Basophils % 0.6, Nucleated RBC % 0.0, Neutrophils # 9.3 H, Lymphocytes # 0.81 L, Monocytes # 1.5 H, Eosinophils # 0.3, Absolute Basophils 0.1 11/11/18 06:00: Sodium 131 L, Plasma Sodium 131, Potassium 3.8, Chloride 98, Carbon Dioxide 25.2, Anion Gap 11.6, BUN 18, Creatinine 0.53, Est GFR (Non-Af Amer) 115, BUN/Creatinine Ratio 34.0 H, Random Glucose 129 H, Calcium 8.2, Calcium Adj for Albumin 9.3, Total Bilirubin 0.7, AST 19, ALT 16 L, Alkaline Phosphatase 86, Total Protein 5.1 L, Albumin 2.2 L 11/12/18 05:59: WBC 11.7 H, RBC 3.50 L, Hgb 10.2 L, Hct 31.2 L, MCV 89.1, MCH 29.1, MCHC 32.7, RDW 13.6, Plt Count 193, MPV 9.9, Neutrophils % (Manual) 75, Lymphocytes % (Manual) 20, Monocytes % (Manual) 3, Eosinophils % (Manual) 2, Neutrophils # (Manual) 8.8 H, Lymphocytes # (Manual) 2.3, Monocytes # (Manual) 0.4, Eosinophils # (Manual) 0.2, Platelet Estimate Normal, Hypochromasia 1+ 11/12/18 05:59: Sodium 132, Plasma Sodium 132, Potassium 3.5, Chloride 96 L, Carbon Dioxide 29.7, Anion Gap 9.8, BUN 24 H, Creatinine 0.57, Est GFR (Non-Af Amer) 106, BUN/Creatinine Ratio 42.1 H, Random Glucose 120 H, Calcium 8.7 11/13/18 05:45: WBC 11.6 H, RBC 3.54 L, Hgb 10.2 L, Hct 31.4 L, MCV 88.7, MCH 28.8, MCHC 32.5, RDW 13.4, Plt Count 237, MPV 10.1, Neutrophils % (Manual) 69, Lymphocytes % (Manual) 17 L, Monocytes % (Manual) 9, Eosinophils % (Manual) 5 H, Neutrophils # (Manual) 8.0 H, Lymphocytes # (Manual) 2.0, Monocytes # (Manual) 1.0, Eosinophils # (Manual) 0.6, Platelet Estimate Normal, RBC Morphology Normal 11/13/18 05:45: Sodium 130 L, Plasma Sodium 130, Potassium 3.9, Chloride 95 L, Carbon Dioxide 28.2, Anion Gap 10.7, BUN 24 H, Creatinine 0.48, Est GFR (Non-Af Amer) 129 D, BUN/Creatinine Ratio 50.0 H, Random Glucose 111 H, Calcium 8.4, Calcium Adj for Albumin 9.4, Total Bilirubin 0.8, AST 21, ALT 14 L, Alkaline Phosphatase 108, Total Protein 5.4 L, Albumin 2.3 L Discharge Location: [facility] Disposition: [facility] Condition: Fair Level of Care: SNF Discharge Activity: Activity as tolerated, Weight bearing Discharge Diet: Low salt Skilled Nursing Therapy: Physicial Therapy, Occupation Therapy Referrals: Arsenio Oviedo MD [Staff Physician] - John Gonzales MD [Primary Care Provider] - One Week Problem Oriented Discharge Instructions to Patient/Family: Total Hip Replacement, [id number], Total Hip Replacement, Care After, [id number] Additional Patient Instructions (free text): -Please make TCM appointment unless [facility] discharge, or if following up with outside provider. Thank you! Martha @ [phone] or Hannah at [phone]. Prescriptions (Any new or edited meds): Sulfamethoxazole/Trimethoprim [Bactrim Ds] 1 tab PO BID #6 tab Albuterol Sulfate/Ipratropium [Duoneb 2.5-0.5MG/3ML Soln] 3 ml INHALATION Q4HRT #42 nebu Metoprolol Tartrate [Lopressor] 25 mg PO Q12H #60 tab Mag Hydrox/Aluminum Hyd/Simeth [Maalox Plus Suspension] 30 ml PO Q6H PRN #600 udc PRN Reason: Indigestion Sennosides/Docusate Sodium [Senokot-S] 2 tab PO HS #30 tab Acetaminophen [Tylenol] 500 mg PO Q6H PRN #120 tab PRN Reason: Mild Pain (Pain Scale 1-3) Rivaroxaban [Xarelto] 20 mg PO DAILY #42 tab Complete Home Medications List: Complete Home Medication List: Magnesium Hydroxide [Milk of Magnesia] 30 ml PO DAILY PRN 10/04/17 Beta-Carotene(A) W-C , E/Min [Ocuvite] 1 tab PO DAILY 10/06/17 Menthol [Biofreeze] 1 appl TP Q6H PRN 10/06/17 carboxymethylcellulose sodium 0.5 % eye drops 1 drp OP BID #15 ml 02/16/18 diltiazem 30 mg tablet 30 mg PO DAILY #30 tab 05/17/18 melatonin 3 mg tablet 3 mg PO HS #30 tab 05/17/18 meloxicam 15 mg tablet 15 mg PO DAILY #30 tab 05/17/18 mirtazapine 15 mg tablet 15 mg PO DAILY #30 tab 05/17/18 cholecalciferol (vitamin D3) 1,000 unit capsule 1,000 unit PO DAILY #30 cap 05/24/18 alprazolam 0.5 mg tablet 0.25 mg PO BID PRN #30 tab 09/22/18 clotrimazole 1 % topical cream See Rx Instructions TP BID #45 g 09/26/18 betamethasone dipropionate 0.05 % topical cream See Rx Instructions .ROUTE .COMPLEX #45 gram 10/10/18 vitamins A and D-white petrolatum-lanolin topical ointment See Rx Instructions .ROUTE .COMPLEX #113 gram 10/10/18 alprazolam 0.25 mg tablet 0.25 mg PO HS #30 tab 10/30/18 Aspirin [Lo-Dose Aspirin EC] 81 mg PO DAILY 11/04/18 Acetaminophen [Tylenol] 650 mg PO Q4H PRN 11/08/18 Bisacodyl [Dulcolax Suppository] 10 mg RC DAILY PRN 11/08/18 Polyethylene Glycol 3350 [Miralax] 17 gm PO DAILY 11/08/18 Acetaminophen [Tylenol] 500 mg PO Q6H PRN #120 tab 11/14/18 Albuterol Sulfate/Ipratropium [Duoneb 2.5-0.5MG/3ML Soln] 3 ml INHALATION Q4HRT #42 nebu 11/14/18 Mag Hydrox/Aluminum Hyd/Simeth [Maalox Plus Suspension] 30 ml PO Q6H PRN #600 udc 11/14/18 Metoprolol Tartrate [Lopressor] 25 mg PO Q12H #60 tab 11/14/18 Rivaroxaban [Xarelto] 20 mg PO DAILY #42 tab 11/14/18 Sennosides/Docusate Sodium [Senokot-S] 2 tab PO HS #30 tab 11/14/18 Sulfamethoxazole/Trimethoprim [Bactrim Ds] 1 tab PO BID #6 tab 11/14/18
[2018-11-14] MEDS: ALBUTEROL SULFATE/IPRATROPIUM 3 ML NEBU IH SCH ×2 (07:21→12:16)
[2018-11-14] MEDS: DILTIAZEM HCL 30 MG TABLET PO SCH (09:16)
[2018-11-14] MEDS: RIVAROXABAN 20 MG TABLET PO SCH (09:17)
[2018-11-14] MEDS: MIRTAZAPINE 15 MG TABLET PO SCH (09:18)
[2018-11-14] MEDS: SULFAMETHOXAZOLE/TRIMETHOPRIM 1 TAB TABLET PO SCH (09:18)
[2018-11-14] MEDS: POLYVINYL ALCOHOL 150 DROP BTL OP SCH (09:19)
[2018-11-14] MEDS: POLYETHYLENE GLYCOL 3350 17 GM PACKET PO SCH (09:20)
[2018-11-14] MEDS: KETOROLAC TROMETHAMINE 15 MG/ML VIAL IV PRN (09:27)
[2018-11-14 12:24] VITALS: BP 132/72
== END 2018-11-14 12:24 | DRG 536 ==
LOC: ER 11:09 → MS 11:58
PROVIDERS: ADMIT Family Medicine; ATTEND Family Medicine
DX: R09.02 Hypoxemia; B96.89 Other specified bacterial agents as the cause of diseases classified elsewhere; E87.1 Hypo-osmolality and hyponatremia; I11.0 Hypertensive heart disease with heart failure; N39.0 Urinary tract infection, site not specified; B96.20 Unspecified Escherichia coli [E. coli] as the cause of diseases classified elsewhere; Z29.9 Encounter for prophylactic measures, unspecified; I48.2 Chronic atrial fibrillation; I50.9 Heart failure, unspecified; S72.001A Fracture of unspecified part of neck of right femur, initial encounter for closed fracture; D72.829 Elevated white blood cell count, unspecified; Z98.890 Other specified postprocedural states; I10 Essential (primary) hypertension; I48.91 Unspecified atrial fibrillation; S72.091A Other fracture of head and neck of right femur, initial encounter for closed fracture
CPT/HCPCS: 36415; 71010; 71045; 73502; 80048; 80053; 81001; 83519; 83880; 85007; 85025; 87077; 87081; 87086; 87186; 93005; 94640; 94664; 97110; 97161; 97530; 99285; J0131